=== PATIENT | female | born 1960 | race African-American/Black ===

== ENCOUNTER 2017-12-24 08:53 | Inpatient (IN) | payer OTHER ==
[~2017-12-24] VITALS: Ht 175.3 cm; Wt 92.2 kg
[2017-12-24] VITALS (15 sets, daily range): BP systolic 68–143; BP diastolic 44–85
--- NOTE | ~2017-12-24 | HC ---
[facility] [place] [address] CONSULTATION Name: BRIGETET RIVAS Room #: 247-P ADM IN M.R.#: [id number] Admission: 12/24/17 Attend Phys: Marv Sheridan MD Discharge: Date of : 56 Report #: [id number] THIS REPORT FOR: //name// CC: Servando Sheridan Nursery Supervisor DATE OF SERVICE: 12/24/2017 TYPE OF REPORT: Infectious diseases consultation. REASON FOR CONSULTATION: I was asked to evaluate the patient concerning pneumonia in the setting of respiratory failure. HISTORY OF PRESENT ILLNESS: The patient was a 57-year old who transfers from [facility] where she is on a chronic ventilator. She is quadriplegic over the last year. Treated initially at [facility] followed by [facility]. Although ALS was suspected and definitive diagnosis was not established. Later presented to [facility] in June with respiratory failure. Because of failure to wean from the ventilator, she was ultimately transferred to [facility]. There she was alert and cooperative. She was able to eat orally. She also had PEG tube feedings at night. Was responsive. She has been on prednisone. On 12/22/2017, laboratory studies showed hemoglobin 8; WBC 8.2 and platelet count 398,000. Differential was unremarkable. Chest x-ray had shown bilateral lower lobe infiltrates, which were new from 2 weeks prior. There was a small left pleural effusion. She had been previously treated with cefepime for pneumonia, developed C. difficile colitis and was on enteral vancomycin. Also, on prednisone taper, now at 2.5 mg every 48 hours. She presented through the Emergency Room with increased swelling of the tongue and unresponsiveness. Question whether she had a seizure. She has been started on Augmentin yesterday for pneumonia that was diagnosed on the . In the Emergency Room, she was unresponsive. EEG was nondiagnostic for seizure. MRI scan was performed, which showed no acute changes. Hemodynamically, she has been stable and has been on FiO2 of 45%. She does now arouse but unable to follow commands. She has quadriplegia. ALLERGIES: CONTRAST DYE. MEDICATIONS: As noted on her JAN, now on vancomycin and Zosyn. REVIEW OF SYSTEMS: She has had liquid stool. Minimal tracheal secretions. No gross aspiration was identified. She is receiving tube feeds through her PEG tube. She has indwelling Funez catheter with adequate urine output. No skin rashes or decubiti. [facility] [address] [place] [address] CONSULTATION Name: BRIGETTE RIVAS Room #: 247-P [facility] IN .R.#: [id number] Admission: 12/24/17 Attend Phys: Marv Sheridan MD Discharge: Date of : 56 Report #: [id number] FAMILY HISTORY: Noncontributory. SOCIAL HISTORY: Nonsmoker. No significant alcohol intake. REVIEW OF SYSTEMS: As noted above. PHYSICAL EXAMINATION: VITAL SIGNS: Afebrile and hemodynamically stable. She was awake but not following commands. HEENT: Eyes were unremarkable. Mouth unremarkable with a fair amount of saliva. Did not appear that her tongue was significantly swollen or mucosal lesions. NECK: Supple. LUNGS: Clear. HEART: Regular, without murmur. ABDOMEN: Obese, soft and nontender. The patient was cushingoid. PEG site was unremarkable. GENITOURINARY: Indwelling Funez catheter unremarkable. EXTREMITIES: Unremarkable. She had a peripheral IV in place. LABORATORY STUDIES: Echocardiogram showed sinus tachycardia with multiple PVCs. EEG, low voltage and no seizure activity. Hemoglobin 8.4; WBC 12.9 and platelet count was 452,000. Differential unremarkable. Chest x-ray, perihilar infiltrate extending into the left lower lobe, mild vascular congestion. Influenza antigen negative. Lactate 0.9. Sodium 135, potassium 3.3, bicarbonate 28 and creatinine 0.2. Urinalysis unremarkable. IMPRESSION: A 57-year old with quadriplegia, respiratory failure, now with change in mental status, possible seizure, left lower lobe pneumonia with leukocytosis, history of Clostridium difficile colitis and on steroid taper for possibility of amyotrophic lateral sclerosis. RECOMMENDATIONS: Cultures of blood, urine and sputum obtained. Sent off viral respiratory panel. Broad antibiotic coverage, pending further studies. Steroid Boost for stress. Add vancomycin due to recent C. diff. <ELECTRONICALLY SIGNED> By: Martin Duncan MD 12/25/17 1741 1830 2106 Martin Duncan MD /nt
--- NOTE | ~2017-12-24 | EKG ---
[address] [place] [address] ELECTROCARDIOGRAM REPORT Name: BRIGETTE RIVAS Room #: 247-P ADM IN M.R.#: [id number] Admission: 12/24/17 Attend Phys: Marv Sheridan MD Discharge: Date of : 56 Report #: [id number] THIS REPORT FOR: //name// [facility] ED Test Date: 2017-12-24 Test Time: 10:46:12 Pat Name: BRIGETTE RIVAS Department: Room: [facility] Gender: F Sewer Pipe Layer: jason : 1960 Requested By: Sachin Rios Order Number: [id number] MD: Everton Lal Measurements Intervals [place] Rate: 100 P: 57 WA: 172 QRS: 12 QRSD: 88 T: 6 QT: 332 QTc: 429 Interpretive Statements Sinus tachycardia Multiple ventricular premature complexes Borderline T wave abnormalities No previous ECG available for comparison Electronically Signed On 12-24-2017 17:17:16 [employer] by Everton Lal [email or web address] <ELECTRONICALLY SIGNED> By: Everton Lal MD, [facility] 12/24/17 1717 1046 1046 Everton Lal MD, FACC /EPI
--- NOTE | ~2017-12-24 | EEG ---
[facility] [address] ELECTROENCEPHALOGRAM Name: BRIGETTE RIVAS Room #: 351-P [facility] IN M.R.#: [id number] Admission: 12/24/17 Attend Phys: Marv Sheridan MD Discharge: 12/31/17 Date of : 56 Report #: [id number] THIS REPORT FOR: //name// CC: Servando Sheridan Director Of Supply Chain DATE OF SERVICE: 12/24/2017 This patient is being evaluated for altered mental status. EEG is being done to evaluate the patient for any seizure activity. EEG is masked by a lot of artifact. Background activity appeared to be about 5-6 Hz, but less than 10 microvolts that makes it very difficult to tell how much background activity is. Photic stimulation is unremarkable. IMPRESSION: This is an abnormal electroencephalogram because it is very low voltage. That is a nonspecific abnormality, which can occur with dementia, encephalopathy, effect of psychotropic medication, etc. Clinical correlation is recommended. No active seizure activity was noted. Thank you very much for this referral. <ELECTRONICALLY SIGNED> By: Ej Cornelius MD 01/02/182010 1551 1708 Ej Cornelius MD /nt
--- NOTE | ~2017-12-24 | H ---
[facility] [place] [address] HISTORY AND PHYSICAL Name: BRIGETTE RIVAS Room #: 247-P ADM IN M.R.#: [id number] Admission: 12/24/17 Attend Phys: Marv Sheridan MD Discharge: Date of : 56 Report #: [id number] THIS REPORT FOR: //name// CC: Servando Sheridan Bee Robber DATE OF SERVICE: 12/24/2017 CHIEF COMPLAINT: Altered mental status. HISTORY OF PRESENT ILLNESS: The patient is a 57-year-old female, transferred from [facility] for evaluation of altered mental status. She has a complicated neurologic history where approximately a year ago developed a progressive neurologic condition where she has become gradually weak, which progressed to the point of quadriplegia. This resulted in respiratory failure and subsequently requiring mechanical ventilation and the placement of a trach tube and PEG tube. She has been seen at multiple hospitals including at without a definitive diagnosis. She has been nonweanable from the [facility] and then transferred to [facility] in October. According to reports from family, she normally is alert and can interact with her family that she does eat by mouth with assistance and was in her usual state of condition last night. This morning, however, she is not responsive to usual stimuli. She has lateralizing gaze with tongue protrusion and biting and is not as responsive or alert as normal. There was a recent x-ray taken from the facility, which showed a basilar infiltrate, and Augmentin was started. She had completed a course of Levaquin earlier in the month. PAST MEDICAL HISTORY: Insulin resistance, likely related to prednisone use. She is requiring insulin. Chronic respiratory failure, ventilator dependent. Hypertension, progressive neurologic condition leading to quadriparesis or quadriplegia. PAST SURGICAL HISTORY: Other than trach and PEG is unknown. FAMILY HISTORY: Unknown. SOCIAL HISTORY: Unknown. ALLERGIES: CONTRAST DYE. MEDICATIONS: Ativan, melatonin, Pepcid, calcium, Seroquel, Lopressor, Zoloft, BuSpar, Lovenox, Humalog. REVIEW OF SYSTEMS: She is unable to give review. [facility] [address] [place] [address] HISTORY AND PHYSICAL Name: BRIGETTE RIVAS Room #: 247-P [facility] IN .R.#: [id number] Admission: 12/24/17 Attend Phys: Marv Sheridan MD Discharge: Date of : 56 Report #: [id number] PHYSICAL EXAMINATION: VITAL SIGNS: Temperature 37, pulse 104, respirations 20, blood pressure 126/73, O2 sat 100% on the ventilator. GENERAL: She is not responsive to verbal or physical stimuli. HEENT: Her eyes are open, seems to have a lateralizing gaze to the right. She has tongue protrusion. NECK: Trach in place. HEART: Regular. LUNGS: Clear anteriorly. ABDOMEN: Soft, normoactive bowel sounds. EXTREMITIES: 1+ nonpitting edema throughout. NEUROLOGIC: She does not move spontaneously or with verbal stimuli. LABORATORY AND IMAGING DATA: Reviewed. I spoke to the ER physician about her case. ASSESSMENT: 1. Altered mental status. 2. Possible seizures. 3. Chronic respiratory failure. 4. Chronic ventilator dependence. 5. 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 6. Diabetes type 2, prednisone induced. 7. Microcytic anemia. PLAN: Should be admitted to ICU. Neurology Service has been consulted, and an EEG has just been completed. There are plans for MRI of the brain. I will ask the Pulmonary Service to follow her and Infectious Disease. Out focus at this point will be trying to pinpoint any cause of this change in mental status from yesterday, which seems to be an acute process. Her underlying neurologic condition remains undiagnosed and that she has had extensive workup elsewhere. It is likely that we will not be able to produce a diagnosis that could be reversible. Therefore, our focus will center on any acute issues transpiring in the last 24 hours. <ELECTRONICALLY SIGNED> By: Marv Sheridan MD 12/25/17 0902 1246 1445 Marv Sheridan MD /nt
--- NOTE | ~2017-12-24 | HC ---
[facility] [place] [address] CONSULTATION Name: BRIGETTE RIVAS Room #: 351-P [facility] IN M.R.#: [id number] Admission: 12/24/17 Attend Phys: Marv Sheridan MD Discharge: 12/31/17 Date of : 56 Report #: [id number] THIS REPORT FOR: //name// CC: Servando Sheridan Farm Supervisor DATE OF SERVICE: 12/24/2017 HISTORY OF PRESENT ILLNESS: This is a 57-year-old female patient who is unable to provide any history at all. I talked to the nurses looking after this patient and I talked to the Emergency Room physician who admitted this patient. I have called the patient's daughter's number twice and the patient's x 1 and I am not able to reach any one of them. We will try again tomorrow. The history I get in this patient is that this patient has a rapidly progressive neurological disease, which has made her quadriplegic. She has been worked up at [facility], [facility] and looks like at [facility]. They considered multiple diagnoses including ALS, MS and Guillain-Drums syndrome, but does not look like they established any diagnosis in this patient the best I can tell. I do not have any records and I have asked for her records from [facility], but I have not gotten those records. She was admitted with altered mental status. It is not clear what her baseline is. She is quadriplegic, but is more functional than she is now. Presently, when I saw her, she does not do anything. She looks towards left side, but does not follow any commands and basically does not do anything on my examination. REVIEW OF SYSTEMS: Looks like it is positive for pneumonia and some very aggressive neurological disease, which has made her quadriplegic. Rest of the history is not available. I do not think anybody has witnessed any seizure. She is ventilator dependent in her baseline. She has been on prednisone. That is all the 14-point review of system I can get in this patient. PAST MEDICAL HISTORY: Positive for neurological disease which is severe. FAMILY HISTORY: Unavailable. SOCIAL HISTORY: [place] PHYSICAL EXAMINATION: Limited. She is in fact not much responsive. She opens her eyes. She looks towards her left, but does not follow any commands. She is quadriplegic in her baseline. I cannot tell about the sensory examination and I have not been able to reach the family. LABORATORY DATA: As mentioned above, nobody has noticed a seizure activity in this patient. [address] [address] CONSULTATION Name: BRIGETTE RIVAS Room #: 351-[facility] IN M.R.#: [id number] Admission: 12/24/17 Attend Phys: Marv Sheridan MD Discharge: 12/31/17 Date of : 56 Report #: [id number] IMPRESSION: Very difficult to form. I do not know what her underlying condition is. I suspect the most common will be amyotrophic lateral sclerosis, although the course is pretty rapid. I assume they have excluded treatable etiologies like Guillain-Drums and polymyositis where she was admitted before. Her present symptomatology is probably because of encephalopathy caused by infection because her EEG does not show any seizure activity. An MRI appear unremarkable. Question is whether to proceed with spinal tap or not and that is what I would like to discuss with the family if I can reach them. RECOMMENDATIONS: 1. We will hold Lovenox tonight. 2. When I can reach the family, I will discuss with them about the spinal tap. 3. If she starts having any clinical seizures, then we will treat her, but presently there is no evidence for seizures and we will basically watch her at the moment. I will continue to try to reach the family and discuss with them further when I am able to reach them. <ELECTRONICALLY SIGNED> By: Ej Cornelius MD 01/02/182008 27 0135 Ej Cornelius MD /nt
--- NOTE | ~2017-12-24 | EEG ---
[facility] [place] [address] ELECTROENCEPHALOGRAM Name: BRIGETTE RIVAS Room #: 351-P [facility] IN M.R.#: [id number] Admission: 12/24/17 Attend Phys: Marv Sheridan MD Discharge: 12/31/17 Date of : 56 Report #: [id number] THIS REPORT FOR: //name// CC: Servando Sheridan Slasher Tender Helper DATE OF SERVICE: 12/26/2017 This patient is being evaluated for altered mental status. EEG was done by placing the electrodes by standard 10-20 system of electrode placement. Both referential and sequential montages were used for recording. Background activity in this patient's EEG is up to about 9 Hz and 30 microvolts. Still a lot of artifact is present, but EEG is better than before. Photic stimulation is unremarkable. The patient appeared to be drowsy during part of this EEG and that is associated with bilateral slowing. Throughout the record, no active epileptiform activity was noticed. IMPRESSION: This patient's electroencephalogram is intermixed with some theta range slowing on both sides, but otherwise appears unremarkable. Thank you very much for this referral. <ELECTRONICALLY SIGNED> By: Ej Cornelius MD 01/02/182010 1600 1646 Ej Cornelius MD /nt
--- NOTE | ~2017-12-24 | HC ---
[facility] [place] [address] CONSULTATION Name: BRIGETTE RIVAS Room #: 247-P ADM IN M.R.#: [id number] Admission: 12/24/17 Attend Phys: Marv Sheridan MD Discharge: Date of : 56 Report #: [id number] THIS REPORT FOR: //name// CC: Servando Sheridan In Classroom Tutor DATE OF SERVICE: 12/24/2017 REFERRAL PHYSICIAN: Dr. Marv Sheridan. REASON FOR REFERRAL: Ventilator management. HISTORY OF PRESENT ILLNESS: The patient is a 57-year-old female who was brought to the Emergency Room with altered mental status. She is quadriplegic and vent dependent. A pulmonary consultation was requested. History is primarily obtained from the medical records. Family members are not available at this time. According to the Emergency Room note, the family had given the history that the patient was well until about a year ago. About a year ago she started to develop weakness. She was hospitalized in [facility] around that time. According to family, the patient underwent surgery in 05/2017 for an apparent pinched nerve. We do not have the records from [facility] for review. According to the family, the patient's condition did not change from the procedure. Initially, pinched nerve was felt to be the cause for the patient's weakness at the time. She was then taken to [facility]. She was evaluated and was felt to have a neurodegenerative disorder; however, workup did rule out ALS and multiple sclerosis. With negative workup the patient was subsequently dismissed to home. With worsening weakness, she was then hospitalized at [facility] ICU. She was there about a month. She was intubated. She eventually had a tracheostomy placed and was then transferred to a long-term care facility at [facility]. At the long-term care facility the patient was felt to be unweanable from the mechanical ventilation. She was eventually transferred to [facility] facility. According to the family, she is normally awake. She does converse with the family. She was in her usual state of health until a few days ago when she was treated for pneumonia. Augmentin was started. Yesterday, the patient was found to have swollen tongue along with altered mental status. She was sent to the Emergency Room for further evaluation. Augmentin was antibiotic started yesterday. [address] [address] CONSULTATION Name: BRIGETTE RIVAS Room #: 247-P [facility] IN M.R.#: [id number] Admission: 12/24/17 Attend Phys: Marv Sheridan MD Discharge: Date of : 56 Report #: [id number] PAST MEDICAL HISTORY: As mentioned above, diabetes mellitus type 2 due to corticosteroids. ALLERGIES: CONTRAST DYE, REACTIONS UNSPECIFIED. MEDICATIONS ON TRANSFER: Include insulin, Lovenox, buspirone, Zoloft, Lopressor, Seroquel, Pepcid, melatonin, lorazepam. FAMILY HISTORY: Noncontributory. SOCIAL HISTORY: No tobacco or alcohol use. REVIEW OF SYSTEMS: Deferred as the patient is not able to provide answers. PHYSICAL EXAMINATION: GENERAL: She is semi-somnolent, arouses to deep sternal rub. VITAL SIGNS: Temperature is 98.6 degrees Fahrenheit, pulse is 104, respiratory rate is 20, blood pressure is 126/73 mmHg, saturation is 100%. HEENT: Normocephalic, atraumatic. NECK: Supple, without any lymphadenopathy or thyromegaly. Status post tracheostomy. CHEST: Breath sounds are fair. Few scattered crackles in both lung logan. No wheezes. CARDIOVASCULAR: Normal S1, S2. There are no murmurs or gallop. There is no JVD. There is no carotid bruit. Pulses are 2+/4+ bilaterally. ABDOMEN: Soft, nontender, no organomegaly or masses felt. GENITOURINARY: Deferred. RECTAL: Deferred. EXTREMITIES: There is no edema, cyanosis or clubbing. NEUROLOGIC: She is semi-somnolent, quadriplegic. LABORATORY DATA: Portable chest x-ray shows cardiomegaly, patchy bilateral interstitial infiltrates, tracheostomy in the midline. No consolidation noted. CT head was unremarkable for any acute ischemic changes. UA was unremarkable. Lactic acid is normal. Negative for influenza A and B. Sodium 135, potassium 3.3, chloride 99, CO2 is 28, BUN is 13, creatinine 0.2, glucose 364. WBC 12,900, hemoglobin 8.4, platelets are mildly elevated. No differential performed. Arterial blood gas revealed pH 7.44, pCO2 of 39, pO2 of 313 on FiO2 (?) 45% (?) IMPRESSION: 1. Altered mental status in this 57-year-old female with 1-year history of progressive weakness of undetermined origin. Etiology is unclear, but may be related to a possible infectious process. Her tongue edema suggests possible allergic reaction. There is a questionable pneumonia with [facility] [address] [place] [address] CONSULTATION Name: BRIGETTE RIVAS Room #: 247-P ADM IN M.R.#: [id number] Admission: 12/24/17 Attend Phys: Marv Sheridan MD Discharge: Date of : 56 Report #: [id number] infiltrates by chest x-ray. Unclear whether these infiltrate are new or old. 2. Tongue edema. Quite suspicious for allergic reaction. The patient may be allergic to PENICILLIN(?) 3. Bilateral patchy infiltrates. Unclear if some of the infiltrates are new or old. Review of old x-rays will be helpful. Agree with broad-spectrum antibiotics to cover possible nosocomial infections. 4. Acute on chronic hypoxic respiratory failure. Note that pO2 is 300 on FiO2 presumed "45%," this may be an error. The patient is likely on FiO2 of 100%. We will clarify. 5. Progressive weakness resulting in quadriplegia of undetermined origin. Workup at was felt to have ruled out amyotrophic lateral sclerosis and multiple sclerosis. Etiology remains unclear. Review of records from will be helpful. Neurology has been consulted. 6. Leukocytosis, differential will be helpful given presentation. Would also recommend eosinophil count. 7. Anemia, hyperchromic, probably related to chronic illness. 8. Altered mental status, likely related to possible allergic reaction, but has progression of underlying neurologic disorder, cerebrovascular accident, etc. Again, Neurology has been consulted. 9. Steroid induced diabetes mellitus type 2, glucose is around 300. 10. Electrolyte abnormalities including hyponatremia, hypokalemia. 11. Status post tracheostomy and PEG tube placement. The patient was felt to be unweanable while at [facility] facility. This will be consistent with history of progressive weakness resulting in quadriplegia. RECOMMENDATION: Agree with broad spectrum antibiotics to cover nosocomial infections. DVT and GI prophylaxis is recommended. In regards to the tongue edema, I would suggest investigating where the patient may had an allergic reaction including possible drug allergy. We will consider Benadryl and/or corticosteroid. Would also recommend checking an IgE level, eosinophil count. Altered mental status along with progressive weakness, Neurology has been consulted. Would recommend reviewing records from [facility] and for review regarding a neurologic disorder. Thank you for this consultation. <ELECTRONICALLY SIGNED> By: Abdon Crowley MD 12/26/17 1516 1259 2035 Abdon Crowley MD /nt
--- NOTE | ~2017-12-24 | D ---
[facility] [place] [address] DISCHARGE SUMMARY Name: BRIGETTE RIVAS Room #: 351-P [facility] IN M.R.#: [id number] Admission: 12/24/17 Attend Phys: Marv Sheridan MD Discharge: 12/31/17 Date of : 56 Report #: [id number] THIS REPORT FOR: //name// CC: Servando Sheridan Marketing Systems Analyst DATE OF SERVICE: 12/31/2017 FINAL DIAGNOSES: 1. Healthcare-associated pneumonia. 2. Chronic respiratory failure. 3. Altered mental status due to the above. 4. Ventilator dependence. HOSPITAL COURSE: The patient was admitted with altered mental status. Ultimately, the diagnosis was pneumonia in the left base for which she was treated with antibiotics. Overnight, her mental status returned to baseline. She was seen by the Neurology Service, but no new plans for workup or definitive diagnosis for her neurologic condition that has been worked up at several other facilities [facility]. She remained on full ventilator care. Video swallow was obtained, which she passed and regular diet was reordered. She had no other interval complication. DISPOSITION: She is transferring back to [facility] facility. She will continue course of IV antibiotics, all other medications will continue. She will follow up with Dr. Duncan as directed. Full ventilator care to remain in place. <ELECTRONICALLY SIGNED> By: Marv Sheridan MD 01/02/18 1042 1222 1236 Marv Sheridan MD /morena
[2017-12-24] MEDS ORDERED: LANTUS SUBQ (09:35)
[2017-12-24] MEDS ORDERED: HUMALOG100 UNIT/2 SUBQ (09:35)
[2017-12-24] MEDS ORDERED: ENOXAPARIN40 MG/0.1 SUBQ (09:35)
[2017-12-24] MEDS ORDERED: BUSPIRONE HCL10 MG PER TUBE (09:36)
[2017-12-24] MEDS ORDERED: ZOLOFT50 MG PER TUBE (09:37)
[2017-12-24] MEDS ORDERED: LOPRESSOR50 PER TUBE (09:37)
[2017-12-24] MEDS ORDERED: SEROQUEL 25 MG25 M1 PER TUBE (09:38)
[2017-12-24] MEDS ORDERED: TUMS PER TUBE (09:38)
[2017-12-24] MEDS ORDERED: PEPCID20 MG PER TUBE (09:38)
[2017-12-24] MEDS ORDERED: MELATONIN3 MG PER TUBE (09:39)
[2017-12-24] MEDS ORDERED: ATIVAN1 MG PO (09:40)
[2017-12-24 09:42] LABS: HEMATOCRIT 25.2 % (37.0-47.0); HEMOGLOBIN 8.4 gm/dL (12.0-15.0); MCHC 33.6 g/dL (28.0-37.0); MCV 77.4 fL (80.0-100.0); PLATELET COUNT 452 thou/uL (150-400); RBC 3.25 mil/uL (4.20-5.00); RDW 20.1 % (10.5-14.5); WBC 12.9 thou/uL (4.0-11.0)
[2017-12-24 09:44] LABS: URINE BILIRUBIN NEGATIVE (Negative); URINE BLOOD NEGATIVE (Negative); URINE CLARITY CLEAR; URINE COLOR YELLOW; URINE GLUCOSE-RANDOM* NEGATIVE (Negative); URINE KETONES NEGATIVE (Negative); URINE NITRITE-REFLEX NEGATIVE (Negative); URINE PROTEIN (DIPSTICK) NEGATIVE (Negative); URINE UROBILINOGEN 0.2 E.U./dl (0.2-1.0)
[2017-12-24 09:45] LABS: URINE LEUKOCYTES-REFLEX TRACE (Negative)
[2017-12-24 09:47] LABS: ANION GAP 8 mmol/L (7-16); BUN 13 mg/dL (7-18); CALCIUM 9.8 mg/dL (8.5-10.1); CHLORIDE 99 mmol/L (98-107); CO2 28 mmol/L (21-32); CREATININE 0.2 mg/dL (0.6-1.0); GLUCOSE 172 mg/dL (74-106); POTASSIUM 3.3 mmol/L (3.5-5.1); SODIUM 135 mmol/L (136-145)
[2017-12-24 09:56] LABS: TROPONIN-I < 0.04 ng/mL (<0.06)
[2017-12-24 11:40] LABS: BE(vivo) 2.6 mmol/L (-2 to +3); HCO3 26.8 mmol/L (22.0-26.0); PCO2 39.8 mmHg (35.0-45.0); PO2 313.3 mmHg (80.0-100.0); pH 7.446 (7.360-7.450); sO2 99.7 % (92.0-98.0)
[2017-12-24 15:28] LABS: ABSOLUTE NEUTROPHILS 10.3 thou/uL (1.4-8.2); BASOPHILS 0.6 % (0.0-2.0); EOSINOPHILS 0.7 % (0.0-3.0); LYMPHOCYTES 9.3 % (24.0-44.0); MONOCYTES 8.5 % (1.0-8.0); POLYS 80.9 % (36.0-66.0)
[2017-12-25] VITALS (24 sets, daily range): BP systolic 91–161; BP diastolic 48–88
[2017-12-25 01:44] LABS: HEMATOCRIT 24.5 % (37.0-47.0); MCH 25.4 pg (26.0-34.0); MCHC 32.6 g/dL (28.0-37.0); MCV 77.8 fL (80.0-100.0); RBC 3.15 mil/uL (4.20-5.00); RDW 19.7 % (10.5-14.5); WBC 12.7 thou/uL (4.0-11.0)
[2017-12-25 01:51] LABS: CALCIUM 8.8 mg/dL (8.5-10.1); CREATININE 0.2 mg/dL (0.6-1.0); POTASSIUM 3.6 mmol/L (3.5-5.1)
[2017-12-25 05:05] LABS: BE(vivo) 0.4 mmol/L (-2 to +3); HCO3 24.9 mmol/L (22.0-26.0); PCO2 39.3 mmHg (35.0-45.0); PO2 99.6 mmHg (80.0-100.0); pH 7.419 (7.360-7.450); sO2 97.6 % (92.0-98.0)
[2017-12-26] VITALS (15 sets, daily range): BP systolic 109–150; BP diastolic 68–95
[2017-12-26 01:19] LABS: HEMATOCRIT 25.8 % (37.0-47.0); HEMOGLOBIN 8.5 gm/dL (12.0-15.0); MCH 25.9 pg (26.0-34.0); MCV 78.5 fL (80.0-100.0); RBC 3.29 mil/uL (4.20-5.00); RDW 19.9 % (10.5-14.5); WBC 20.1 thou/uL (4.0-11.0)
[2017-12-26 01:20] LABS: BE(vivo) 4.1 mmol/L (-2 to +3); HCO3 28.7 mmol/L (22.0-26.0); PCO2 43.5 mmHg (35.0-45.0); PO2 131.1 mmHg (80.0-100.0); pH 7.438 (7.360-7.450); sO2 98.7 % (92.0-98.0)
[2017-12-26 01:31] LABS: CALCIUM 9.7 mg/dL (8.5-10.1); CREATININE 0.2 mg/dL (0.6-1.0); POTASSIUM 3.1 mmol/L (3.5-5.1)
[2017-12-27] VITALS (9 sets, daily range): BP systolic 103–125; BP diastolic 65–79
[2017-12-27 04:54] LABS: HEMATOCRIT 28.2 % (37.0-47.0); HEMOGLOBIN 9.2 gm/dL (12.0-15.0); MCH 25.8 pg (26.0-34.0); MCHC 32.5 g/dL (28.0-37.0); MCV 79.4 fL (80.0-100.0); RBC 3.55 mil/uL (4.20-5.00); RDW 20.6 % (10.5-14.5); WBC 20.7 thou/uL (4.0-11.0)
[2017-12-27 05:01] LABS: CALCIUM 9.9 mg/dL (8.5-10.1); CREATININE 0.2 mg/dL (0.6-1.0); POTASSIUM 4.3 mmol/L (3.5-5.1)
[2017-12-27 05:12] LABS: ADENOVIRUS Negative (Negative); INFLUENZA A Negative (Negative); INFLUENZA B Negative (Negative); METAPNEUMOVIRUS Negative (Negative); PARAINFLUENZA 1 Negative (Negative); PARAINFLUENZA 2 Negative (Negative); PARAINFLUENZA 3 Negative (Negative); RHINOVIRUS Negative (Negative); RSV A Negative (Negative); RSV B Negative (Negative)
[2017-12-28 06:27] VITALS: BP 91/57
[2017-12-28 07:49] VITALS: BP 119/68
[2017-12-28 08:38] LABS: CALCIUM 9.5 mg/dL (8.5-10.1); CREATININE 0.2 mg/dL (0.6-1.0); POTASSIUM 3.8 mmol/L (3.5-5.1)
[2017-12-28 11:40] LABS: HEMATOCRIT 30.1 % (37.0-47.0); HEMOGLOBIN 9.7 gm/dL (12.0-15.0); MCH 25.4 pg (26.0-34.0); MCHC 32.3 g/dL (28.0-37.0); MCV 78.6 fL (80.0-100.0); RBC 3.83 mil/uL (4.20-5.00); WBC 20.9 thou/uL (4.0-11.0)
[2017-12-28 11:54] LABS: APTT 27.6 Seconds (24.5-32.8); INR 1.1; PROTIME 11.3 Seconds (9.3-11.4)
[2017-12-28 12:30] VITALS: BP 151/91
[2017-12-28 16:11] VITALS: BP 125/77
[2017-12-28 19:10] VITALS: BP 125/78
[2017-12-29 03:35] VITALS: BP 135/80
[2017-12-29 05:16] LABS: HEMATOCRIT 29.9 % (37.0-47.0); HEMOGLOBIN 9.7 gm/dL (12.0-15.0); MCH 25.1 pg (26.0-34.0); MCHC 32.3 g/dL (28.0-37.0); MCV 77.8 fL (80.0-100.0); RBC 3.84 mil/uL (4.20-5.00); RDW 20.4 % (10.5-14.5)
[2017-12-29 05:26] LABS: CALCIUM 9.6 mg/dL (8.5-10.1); CREATININE 0.2 mg/dL (0.6-1.0); POTASSIUM 3.5 mmol/L (3.5-5.1)
[2017-12-29 08:24] VITALS: BP 127/62
[2017-12-29 11:16] VITALS: BP 83/47
[2017-12-29 15:47] VITALS: BP 112/72
[2017-12-29 19:30] VITALS: BP 106/56
[2017-12-30 04:00] VITALS: BP 89/45
[2017-12-30 07:28] VITALS: BP 95/39
[2017-12-30 11:12] VITALS: BP 91/53
[2017-12-30 16:44] VITALS: BP 173/94
[2017-12-30 20:00] VITALS: BP 107/74
[2017-12-31 04:00] VITALS: BP 101/64
[2017-12-31 07:15] VITALS: BP 124/69
[2017-12-31 07:20] LABS: BE(vivo) 2.3 mmol/L (-2 to +3); HCO3 26.7 mmol/L (22.0-26.0); PCO2 40.8 mmHg (35.0-45.0); PO2 108.6 mmHg (80.0-100.0); pH 7.434 (7.360-7.450); sO2 98.1 % (92.0-98.0)
[2017-12-31 10:36] LABS: HEMATOCRIT 28.8 % (37.0-47.0); HEMOGLOBIN 9.3 gm/dL (12.0-15.0); MCH 25.6 pg (26.0-34.0); MCHC 32.4 g/dL (28.0-37.0); MCV 79.1 fL (80.0-100.0); RBC 3.64 mil/uL (4.20-5.00); RDW 20.1 % (10.5-14.5); WBC 17.7 thou/uL (4.0-11.0)
[2017-12-31 10:48] LABS: CALCIUM 9.8 mg/dL (8.5-10.1); CREATININE 0.2 mg/dL (0.6-1.0); POTASSIUM 3.5 mmol/L (3.5-5.1)
[2017-12-31 11:43] VITALS: BP 130/69
[2017-12-31] MEDS ORDERED: CIPRO250 M1 PO (12:09)
[2017-12-31] MEDS ORDERED: FERREX 150 PLU1 EAC1 PO (12:10)
[2017-12-31] MEDS ORDERED: DUONEB 2.5-0.5 M3 ML INH (12:10)
[2017-12-31] MEDS ORDERED: PREVALITE PACKET4 GM PO (12:10)
[2017-12-31] MEDS ORDERED: LOPRESSOR25 PER TUBE (12:10)
[2017-12-31] MEDS ORDERED: ALPRAZOLAM 0.50.5 M1 PER TUBE (12:11)
[2017-12-31] MEDS ORDERED: ACETAMINOPHEN325 M1 PO (12:11)
[2017-12-31 15:15] VITALS: BP 106/64
[2017-12-31 15:40] VITALS: BP 110/78
[2018-03-18] MEDS ORDERED: XANAX 0.5 MG0.5 MG PO (23:08)
[2018-03-18] MEDS ORDERED: HYDROCODON-ACE1 EAC7 PO (23:09)
[2018-03-18] MEDS ORDERED: ANTACID PLUS A355 M1 PER TUBE (23:09)
[2018-03-18] MEDS ORDERED: POTASSIUM20 PO (23:11)
[2018-03-18] MEDS ORDERED: FERREX 150150 MG PER TUBE (23:13)
[2018-03-22] MEDS ORDERED: MERREM1 GM IV (10:15)
[2018-03-22] MEDS ORDERED: ALPRAZOLAM 0.0.25 M1 PER TUBE (10:15)
[2018-03-22] MEDS ORDERED: ENOXAPARIN40 MG/0.1 SUBQ (10:15)
[2018-03-22] MEDS ORDERED: NOVOLOG100 UNIT/1 SUBQ (10:16)
== END 2017-12-31 19:14 | DRG 870 ==
LOC: ER 08:53 → EROBS 11:27 → ICU 11:27 → EROBS 13:16 → ICU 13:16 → 3W 12-27 16:58
PROVIDERS: Emergency Medicine; Internal Medicine Geriatric Medicine; Internal Medicine Pulmonary Disease; Specialist
PROC: 5A1955Z Respiratory Ventilation, Greater than 96 Consecutive Hours (ICD-10-PCS; principal; 2017-12-24)
DX: A41.9 Sepsis, unspecified organism (principal); G82.50 Quadriplegia, unspecified; J18.1 Lobar pneumonia, unspecified organism; J96.21 Acute and chronic respiratory failure with hypoxia; G93.40 Encephalopathy, unspecified; R65.20 Severe sepsis without septic shock; E11.9 Type 2 diabetes mellitus without complications; T38.0X5A Adverse effect of glucocorticoids and synthetic analogues, initial encounter; I10 Essential (primary) hypertension; D50.9 Iron deficiency anemia, unspecified; Z93.0 Tracheostomy status; Y92.89 Other specified places as the place of occurrence of the external cause; Z91.041 Radiographic dye allergy status; Z93.1 Gastrostomy status
CPT/HCPCS: 10078; 10779

== ENCOUNTER 2018-09-06 07:36 | Inpatient (IN) | payer OTHER ==
[~2018-09-06] VITALS: Ht 167.6 cm; Wt 85.1 kg
[2018-09-06] VITALS (35 sets, daily range): BP systolic 80–203; BP diastolic 43–108
--- NOTE | ~2018-09-06 | H ---
[facility] [place] [address] HISTORY AND PHYSICAL Name: BRIGETTE RIVAS Room #: 241-P ADM IN M.R.#: [id number] Admission: 09/06/18 Attend Phys: Marv Sheridan MD Discharge: Date of : 56 Report #: [id number] THIS REPORT FOR: //name// CC: Servando Sheridan DATE OF SERVICE: 09/06/2018 CHIEF COMPLAINT: Low blood pressure. 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 There was report there were systolic blood pressure dropping into the 70s. The staff reported that she is nonverbal, but normally responds by eye contact and today there was little to no interaction. Blood pressure was 130s en route, but in ER during the course of workup, she became hypotensive as well. She is unable to give any details of her history. All the information was obtained by speaking with the ER physician and reviewing the records. She is admitted to ICU with sepsis, likely related from healthcare-associated pneumonia and possible urinary infection. 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 She has failed multiple attempts at ventilator weaning and is now chronically ventilated. She has a chronic feeding tube. She is total care and has progressed to quadriplegia, diabetes type 2, related to steroid use, hypertension, history of C. diff in 2017. Several months ago, she had an admission at [facility] for neurologic evaluation and they diagnosed her with ALS per review of [facility] records and discussing with Dr. Duncan. PAST SURGICAL HISTORY: Trach and PEG. FAMILY HISTORY: Noncontributory. SOCIAL HISTORY: She is . No known chronic alcohol or tobacco use. ALLERGIES: CONTRAST DYE. MEDICATIONS: DuoNeb, Tylenol, Xanax, Merrem, sertraline, metoprolol, melatonin, scopolamine patch. REVIEW OF SYSTEMS: She is unable to give review. OBJECTIVE: VITAL SIGNS: Temperature 37.4, pulse 102, respirations 16, blood pressure 125/75, O2 sat 94% on 40% ventilator. [facility] [address] [place] [address] HISTORY AND PHYSICAL Name: BRIGETTE RIVAS Room #: [facility] ADM IN M.R.#: [id number] Admission: 09/06/18 Attend Phys: Marv Sheridan MD Discharge: Date of : 56 Report #: [id number] GENERAL: She is not alert. Eyes open. HEENT: Tongue protruding. No meaningful interaction. NECK: Tracheostomy in place with some yellow secretions. HEART: Slightly tachycardic, regular rhythm. ABDOMEN: Protuberant, soft, normoactive bowel sounds. PEG tube. EXTREMITIES: No cyanosis or clubbing. There is nonpitting edema throughout. NEUROLOGIC: No spontaneous movement and no interaction currently. Labs reviewed. Urinalysis and chest x-ray reviewed. ASSESSMENT: 1. Sepsis. 2. Healthcare-associated pneumonia. 3. Probable urinary tract infection. 4. Chronic ventilator dependence. 5. Chronic hypoxic hypercapnic respiratory failure. 6. ALS. PLAN: She is admitted to ICU with supportive cares and will have ID and Pulmonary service followed her. <ELECTRONICALLY SIGNED> By: Marv Sheridan MD 09/07/18 0754 1218 1245 Marv Sheridan MD /nt
--- NOTE | ~2018-09-06 | O ---
[facility] [place] [address] OPERATIVE REPORT Name: BRIGETTE RIVAS Room #: 241-P ADM IN M.R.#: [id number] Admission: 09/06/18 Attend Phys: Marv Sheridan MD Discharge: Date of : 56 Report #: [id number] THIS REPORT FOR: //name// CC: Servando Sheridan PROCEDURE: Diagnostic and therapeutic bronchoscopy. CLINICAL HISTORY: A 58-year-old -Spanish female with progressive neurodegenerative disorder. The patient is felt to have ALS. Recent CT chest and chest x-ray revealed extensive left-sided infiltrates with atelectasis. A diagnostic bronchoscopy was performed. POSTOPERATIVE DIAGNOSES: 1. Marked mucus secretions and mucus plugging involving the left main stem bronchus. 2. Bjcc-vb-vdsebeio mucosal edema bilaterally. DESCRIPTION OF PROCEDURE: Following obtained consent and risks and benefits being explained to the patient, which included infection, bleeding, pneumothorax, the procedure was performed in the ICU room. Thorough the previously placed tracheostomy tube, a flexible disposable bronchoscope was used. The distal trachea was unremarkable. Vaishnavi was unremarkable. Left main stem bronchus was notable for marked secretions, mucus plugging seen proximal to the bronchus. Following suctioning, the rest of the airways were examined. The left upper lobe and left lower lobe was grossly unremarkable other than moderate mucosal edema. Right mainstem bronchus, right upper lobe, right middle lobe and right lower lobe were grossly unremarkable other than mild mucosal edema. The bronchial wash will be sent for microbiologic studies. Vital signs and saturation throughout the study were within normal range. The patient tolerated the procedure well. By: 1642 1832 Abdon Crowley MD /nt
--- NOTE | ~2018-09-06 | HC ---
[facility] [place] [address] CONSULTATION Name: BRIGETTE RIVAS Room #: 241-P ADM IN M.R.#: [id number] Admission: 09/06/18 Attend Phys: Marv Sheridan MD Discharge: Date of : 56 Report #: [id number] THIS REPORT FOR: //name// CC: Servando Sheridan DATE OF SERVICE: 09/06/2018 REASON FOR CONSULTATION: Hypotension with suspected sepsis. HISTORY OF PRESENT ILLNESS: The patient is a 58-year-old with underlying ALS, advanced, who is ventilatory dependent. Presents from [facility] with hypotension and decreased mental status. The patient has deteriorated over the last several months, being able to communicate other than blinking her eyes. She has had right upper extremity PICC in place. She has had moderate amount of tracheal secretions. There have been no increased oxygen requirements. She has an indwelling Funez catheter. She has had no diarrhea. She has a PEG tube, which has been functional. Nursing notes no rashes or decubiti. Following presentation to the Emergency Room, she was being given IV fluids with improvement in her blood pressure. Transferred to the Intensive Care Unit for further monitoring. Remains on FiO2 of 35%. Blood and sputum cultures have been obtained. REVIEW OF SYSTEMS: The patient was unable to give any further details due to her advanced neurologic deterioration. PAST MEDICAL HISTORY: Dysphagia, tracheostomy, quadriplegia due to ALS, diabetes, anxiety, hypertension, remote C. diff history. ALLERGIES: CONTRAST DYE. MEDICATIONS: As noted on her MAR, having been given vancomycin, Zosyn and Levaquin in the Emergency Room. FAMILY HISTORY: Noncontributory. SOCIAL HISTORY: Nonsmoker, no significant alcohol intake. PHYSICAL EXAMINATION: VITAL SIGNS: Temperature is 99.3, heart rate 102, blood pressure 125/75 after IV fluid bolus. HEENT: Eyes were open, but not responsive. She had scleral edema and evidence of conjunctivitis. Mouth was without mucositis or ulceration. NECK: Supple. Tracheostomy was midline with no drainage. LUNGS: Coarse bilaterally with no consolidation or rub. BACK: Midline. [facility] [address] [place] [address] CONSULTATION Name: BRIGETTE RIVAS Room #: 241-P [facility] IN M.R.#: [id number] Admission: 09/06/18 Attend Phys: Marv Sheridan MD Discharge: Date of : 56 Report #: [id number] SKIN: Without rash or decubitus. No palpable adenopathy. HEART: Tachycardic and regular without murmur. ABDOMEN: Soft with unremarkable PEG site. No mass or hepatosplenomegaly. EXTREMITIES: With no cyanosis or edema. NEUROLOGIC: She was flaccid, unable to assess cranial nerves. PSYCHIATRIC: Mood: Unable to assess. LABORATORY STUDIES: Lactate 1.6. Urinalysis: Many wbc's, many bacteria, with blood in urine. Culture pending. Sodium 137, potassium 3.2, creatinine 0.4, alkaline phosphatase 122. Liver function test normal. Hemoglobin 8.7, platelet count 360,000, WBC 11.2. Chest x-ray with bilateral pulmonary infiltrates, right greater than left. IMPRESSION: Healthcare-associated septic shock, which has responded to IV fluids. Source of infection, urinary tract infection catheter related versus healthcare associated ventilatory associated pneumonia. Advanced ALS. Chronic respiratory failure. RECOMMENDATION: We will continue broad antibiotic coverage including vancomycin, Zosyn and Levaquin. Await blood, urine and sputum culture. Serial chest x-rays. Aspiration precautions. We will adjust her antibiotics as further culture results are known. Continue ICU support. <ELECTRONICALLY SIGNED> By: aMrtin Duncan MD 09/09/18 0918 1331 0419 Martin Duncan MD /nt
--- NOTE | ~2018-09-06 | HC ---
[facility] [place] [address] CONSULTATION Name: BRIGETTE RIVAS Room #: 241-P ADM IN M.R.#: [id number] Admission: 09/06/18 Attend Phys: Marv Sheridan MD Discharge: Date of : 56 Report #: [id number] THIS REPORT FOR: //name// CC: Servando Sheridan DATE OF SERVICE: 09/06/2018 PULMONARY CONSULTATION REFERRING PHYSICIAN: Dr. Sheridan. REASON FOR REFERRAL: Pneumonia. HISTORY OF PRESENT ILLNESS: The patient is a 58-year-old female, with ALS, presented to the Emergency Room with altered mental status and hypotension. A pulmonary consultation was requested. The patient is known to this physician from her earlier hospitalization from November 2017. Her neurologic symptoms, according to family, started about 2016. She was hospitalized in [facility] to undergo a surgical procedure for an apparent pinched nerve. Following the procedure, according to family, the patient started to develop weakness. Ever since then, she has had progressive neurodegenerative disorder. She was seen at [facility]. According to the family, workup was essentially unremarkable. ALS along with multiple sclerosis was ruled out. Her weakness subsequently worsened where she was hospitalized, developed respiratory failure and had a chronic tracheostomy. She has been in a long-term care facility ever since. She was doing fairly well at the LTAC where on the day of admission, she was found to be hypotensive along with altered mental status from her baseline. When she was last seen in February 2018, her speech was normal. Currently, her eyes are open, but she does not communicate. She appears quite weak. She has some spastic atrophy. PAST MEDICAL HISTORY: As mentioned above, progressive weakness leading to quadriplegia, unknown etiology, workup in the past has failed to lead to any diagnosis. Previous workup at [facility] was not diagnostic, status post tracheostomy, Shiley #6, she is vent dependent, dysphagia, status post PEG tube placement, diabetes mellitus type 2, anxiety disorder, hypertension, passage of C. difficile colitis. ALLERGIES: CONTRAST DYE, REACTIONS NOT SPECIFIED. MEDICATIONS: From the facility include DuoNeb, alprazolam, Merrem, Lovenox, [facility] [address] [place] [address] CONSULTATION Name: BRIGETTE RIVAS Room #: 241-P ADM IN M.R.#: [id number] Admission: 09/06/18 Attend Phys: Marv Sheridan MD Discharge: Date of : 56 Report #: [id number] insulin supplements, Norvasc, MiraLax, Lopressor, senna, melatonin. FAMILY HISTORY: Noncontributory. SOCIAL HISTORY: No tobacco or alcohol use. REVIEW OF SYSTEMS: As mentioned above, otherwise is deferred as the patient is not able to answer questions. PHYSICAL EXAMINATION: VITAL SIGNS: Temperature is 99 degrees Fahrenheit, pulse is 100, respiratory rate is 16, blood pressure 125/75 mmHg, saturation is 94%. HEENT: Normocephalic, atraumatic. NECK: Status post tracheostomy. CHEST: Breath sounds are fair, coarse breath sounds bilaterally. CARDIOVASCULAR: Normal S1, S2. No murmurs or gallop. There is no JVD. There is no carotid bruit. Pulses are 2+/4+ bilaterally. ABDOMEN: Soft, nontender, no organomegaly or masses felt. GENITOURINARY: Deferred. RECTAL: Deferred. EXTREMITIES: There is no edema, cyanosis or clubbing. LABORATORY DATA: Chest x-ray shows increased bilateral infiltrates, greater in the right than the left, tracheostomy in the appropriate position. Sodium 137, potassium 3.2, chloride 95, CO2 of 37, BUN 25, creatinine 0.4. Liver enzymes are mildly abnormal. WBC 11,200, hemoglobin is 8.7, platelets are normal, no evidence of bandemia. Arterial blood gas revealed pH 7.44, pCO2 of 49, pO2 of 77 and FiO2 of 35%. Albumin 2.4. IMPRESSION: 1. Acute on chronic hypoxic and hypercapnic respiratory failure in this 58-year-old female secondary to pneumonia. 2. 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 3. Encephalopathy, likely related to sepsis due to pneumonia. 4. Bilateral infiltrates, suspect pneumonia, nosocomial. 5. Chronic tracheostomy due to above. 6. Severe protein calorie malnutrition, albumin 2.4. 7. Anemia due to chronic disease. RECOMMENDATION: Agree with broad spectrum antibiotics, we will defer to infectious disease, continue mechanical ventilation, wean O2 for saturation 90%. Deep venous thrombosis and gastrointestinal prophylaxis will be indicated. Nutritional support once the patient is stable. Vasopressors and IV fluids will be recommended for her hypotension. [address] [place] [address] CONSULTATION Name: RIVASBRIGETTE Room #: [facility] IN M.R.#: [id number] Admission: 09/06/18 Attend Phys: Marv Sheridan MD Discharge: Date of : 56 Report #: [id number] Overall, appears to be grim given progressive neurologic degeneration. Thank you for this consultation. <ELECTRONICALLY SIGNED> By: Abdon Crowley MD 09/07/18 1611 1731 0755 Abdon Crowley MD /nt
[~2018-09-06 07:36] MED LIST: ACETAMINOPHEN325 M1 PO; ALPRAZOLAM 0.0.25 M1 PER TUBE; ALPRAZOLAM 0.50.5 M1 PER TUBE; ANTACID PLUS A355 M1 PER TUBE; ATIVAN1 MG PO; BUSPIRONE HCL10 MG PER TUBE; CIPRO250 M1 PO; DUONEB 2.5-0.5 M3 ML INH; ENOXAPARIN40 MG/0.1 SUBQ; FERREX 150 PLU1 EAC1 PO; FERREX 150150 MG PER TUBE; HUMALOG100 UNIT/2 SUBQ; HYDROCODON-ACE1 EAC7 PO; LANTUS SUBQ; LOPRESSOR25 PER TUBE; LOPRESSOR50 PER TUBE; MELATONIN3 MG PER TUBE; MERREM1 GM IV; NOVOLOG100 UNIT/1 SUBQ; PEPCID20 MG PER TUBE; POTASSIUM20 PO; PREVALITE PACKET4 GM PO; SEROQUEL 25 MG25 M1 PER TUBE; TUMS PER TUBE; XANAX 0.5 MG0.5 MG PO; ZOLOFT50 MG PER TUBE
[2018-09-06] MEDS ORDERED: NORVASC5 MG PO (07:52)
[2018-09-06] MEDS ORDERED: MIRALAX17 GM PO (07:53)
[2018-09-06] MEDS ORDERED: LOPRESSOR25 PO (07:54)
[2018-09-06] MEDS ORDERED: SENNA8.6 MG PO (07:55)
[2018-09-06] MEDS ORDERED: MELATONIN5 M1 PO (07:56)
[2018-09-06] MEDS ORDERED: SCOPOLAMINE1 EACH TRANSDERM (07:57)
[2018-09-06 08:17] LABS: ABSOLUTE NEUTROPHILS 8.3 thou/uL (1.4-8.2); BASOPHILS 0.2 % (0.0-2.0); HEMATOCRIT 26.7 % (37.0-47.0); HEMOGLOBIN 8.7 gm/dL (12.0-15.0); MCH 25.3 pg (26.0-34.0); MCHC 32.8 g/dL (28.0-37.0); MCV 77.3 fL (80.0-100.0); MONOCYTES 11.4 % (1.0-8.0); PLATELET COUNT 360 thou/uL (150-400); POLYS 74.4 % (36.0-66.0); RBC 3.45 mil/uL (4.20-5.00); RDW 20.3 % (10.5-14.5); WBC 11.2 thou/uL (4.0-11.0)
[2018-09-06 08:19] LABS: URINE BILIRUBIN NEGATIVE (Negative); URINE BLOOD 1+ (Negative); URINE CLARITY CLOUDY; URINE COLOR YELLOW; URINE GLUCOSE-RANDOM* 2+ (Negative); URINE KETONES NEGATIVE (Negative); URINE NITRITE-REFLEX NEGATIVE (Negative); URINE PROTEIN (DIPSTICK) 1+ (Negative); URINE SPECIFIC GRAVITY 1.015 (1.005-1.035); URINE UROBILINOGEN 0.2 E.U./dl (0.2-1.0)
[2018-09-06 08:20] LABS: URINE LEUKOCYTES-REFLEX 2+ (Negative)
[2018-09-06 08:21] LABS: BE(vivo) 7.8 mmol/L (-2 to +3); PCO2 49.1 mmHg (35.0-45.0); PO2 77.1 mmHg (80.0-100.0); pH 7.445 (7.360-7.450); sO2 95.7 % (92.0-98.0)
[2018-09-06 08:26] LABS: CALCIUM 10.9 mg/dL (8.5-10.1); CREATININE 0.4 mg/dL (0.6-1.0); POTASSIUM 3.2 mmol/L (3.5-5.1)
[2018-09-06 08:32] LABS: ALBUMIN 2.4 g/dL (3.4-5.0); DIRECT BILIRUBIN 0.2 mg/dL (<0.1-0.3); TOTAL BILIRUBIN 0.4 mg/dL (<0.1-1.0)
[2018-09-06 08:33] LABS: SQUAMOUS 4-10 Moderate /LPF (0-3)
[2018-09-06 08:34] LABS: CASTS None Seen /LPF (None Seen); CRYSTALS None Seen /LPF (None Seen); URINE RBC 0-2 Rare /HPF (0-2); URINE WBC-REFLEX >25 Many /HPF (0-5)
[2018-09-06 08:35] LABS: BACTERIA-REFLEX >30 Many /HPF (None Seen)
[2018-09-07] VITALS (75 sets, daily range): BP systolic 75–177; BP diastolic 41–94
[2018-09-07 04:37] LABS: HEMOGLOBIN 8.3 gm/dL (12.0-15.0); MCH 25.3 pg (26.0-34.0); MCHC 33.2 g/dL (28.0-37.0); MCV 76.1 fL (80.0-100.0); RBC 3.28 mil/uL (4.20-5.00); RDW 20.6 % (10.5-14.5); WBC 11.1 thou/uL (4.0-11.0)
[2018-09-07 04:43] LABS: CALCIUM 9.4 mg/dL (8.5-10.1); CREATININE 0.2 mg/dL (0.6-1.0)
[2018-09-07 04:45] LABS: POTASSIUM 2.4 mmol/L (3.5-5.1)
[2018-09-07 05:51] LABS: BE(vivo) 8.4 mmol/L (-2 to +3); HCO3 33.7 mmol/L (22.0-26.0); PO2 89.7 mmHg (80.0-100.0); sO2 96.9 % (92.0-98.0)
[2018-09-08] VITALS (70 sets, daily range): BP systolic 71–189; BP diastolic 37–95
[2018-09-08 02:52] LABS: HEMATOCRIT 24.2 % (37.0-47.0); HEMOGLOBIN 7.9 gm/dL (12.0-15.0); MCH 24.8 pg (26.0-34.0); MCHC 32.5 g/dL (28.0-37.0); MCV 76.1 fL (80.0-100.0); RBC 3.18 mil/uL (4.20-5.00); RDW 20.9 % (10.5-14.5); WBC 11.8 thou/uL (4.0-11.0)
[2018-09-08 03:05] LABS: ALBUMIN 1.8 g/dL (3.4-5.0); CALCIUM 9.9 mg/dL (8.5-10.1); CREATININE 0.3 mg/dL (0.6-1.0); POTASSIUM 3.7 mmol/L (3.5-5.1); TOTAL BILIRUBIN 0.4 mg/dL (<0.1-1.0); TOTAL PROTEIN 7.2 g/dL (6.4-8.2)
[2018-09-09] VITALS (60 sets, daily range): BP systolic 82–137; BP diastolic 45–76
[2018-09-09 06:00] LABS: WBC 11.1 thou/uL (4.0-11.0)
[2018-09-09 06:02] LABS: HEMATOCRIT 20.6 % (37.0-47.0); HEMOGLOBIN 6.7 gm/dL (12.0-15.0); MCH 24.9 pg (26.0-34.0); MCHC 32.7 g/dL (28.0-37.0); MCV 76.1 fL (80.0-100.0); RBC 2.7 mil/uL (4.20-5.00); RDW 20.6 % (10.5-14.5)
[2018-09-09 06:14] LABS: CALCIUM 9.2 mg/dL (8.5-10.1); CREATININE 0.5 mg/dL (0.6-1.0); POTASSIUM 3.8 mmol/L (3.5-5.1)
[2018-09-10] VITALS (39 sets, daily range): BP systolic 80–214; BP diastolic 45–110
[2018-09-10 04:43] LABS: RDW 21.2 % (10.5-14.5)
[2018-09-10 04:44] LABS: HEMATOCRIT 27.9 % (37.0-47.0); MCH 24.2 pg (26.0-34.0); MCHC 31.7 g/dL (28.0-37.0); MCV 76.4 fL (80.0-100.0); RBC 3.66 mil/uL (4.20-5.00)
[2018-09-10 04:47] LABS: CALCIUM 10.4 mg/dL (8.5-10.1); CREATININE 0.5 mg/dL (0.6-1.0); HEMOGLOBIN 8.9 gm/dL (12.0-15.0); POTASSIUM 3.9 mmol/L (3.5-5.1); WBC 36.9 thou/uL (4.0-11.0)
[2018-09-10 08:14] LABS: HEMATOCRIT 28.2 % (37.0-47.0); HEMOGLOBIN 8.9 gm/dL (12.0-15.0); MCH 24.3 pg (26.0-34.0); MCHC 31.5 g/dL (28.0-37.0); MCV 77.4 fL (80.0-100.0); RBC 3.65 mil/uL (4.20-5.00); RDW 21.5 % (10.5-14.5); WBC 22.9 thou/uL (4.0-11.0)
[2018-09-10 12:01] LABS: HEMOGLOBIN 7.9 gm/dL (12.0-15.0); MCH 24.5 pg (26.0-34.0); MCHC 31.7 g/dL (28.0-37.0); MCV 77.3 fL (80.0-100.0); RBC 3.24 mil/uL (4.20-5.00); RDW 21.4 % (10.5-14.5); WBC 17.3 thou/uL (4.0-11.0)
[2018-09-11] VITALS (31 sets, daily range): BP systolic 102–193; BP diastolic 61–100
[2018-09-11 05:22] LABS: HEMATOCRIT 25.3 % (37.0-47.0); HEMOGLOBIN 8.2 gm/dL (12.0-15.0); MCH 24.4 pg (26.0-34.0); MCHC 32.3 g/dL (28.0-37.0); MCV 75.5 fL (80.0-100.0); RBC 3.35 mil/uL (4.20-5.00); RDW 21.3 % (10.5-14.5); WBC 21.9 thou/uL (4.0-11.0)
[2018-09-11 05:33] LABS: CALCIUM 9.4 mg/dL (8.5-10.1); CREATININE 0.5 mg/dL (0.6-1.0); POTASSIUM 4.1 mmol/L (3.5-5.1)
[2018-09-12] VITALS (30 sets, daily range): BP systolic 103–176; BP diastolic 53–94
[2018-09-12 05:45] LABS: HEMATOCRIT 26.4 % (37.0-47.0); HEMOGLOBIN 8.5 gm/dL (12.0-15.0); MCH 24.8 pg (26.0-34.0); MCHC 32.1 g/dL (28.0-37.0); MCV 77.3 fL (80.0-100.0); PLATELET COUNT 432 thou/uL (150-400); RBC 3.41 mil/uL (4.20-5.00); RDW 21.2 % (10.5-14.5); WBC 25.3 thou/uL (4.0-11.0)
[2018-09-12 06:06] LABS: ALBUMIN 2.2 g/dL (3.4-5.0); CALCIUM 9.7 mg/dL (8.5-10.1); CREATININE 0.5 mg/dL (0.6-1.0); POTASSIUM 4.5 mmol/L (3.5-5.1); TOTAL BILIRUBIN 0.2 mg/dL (<0.1-1.0); TOTAL PROTEIN 8.1 g/dL (6.4-8.2)
[2018-09-12 08:52] LABS: ABSOLUTE NEUTROPHILS 21.8 thou/uL (1.4-8.2); ANISOCYTOSIS 2+; ATYPICAL LYMPHS 1 %; POLYCHROMASIA OCCASIONAL
[2018-09-13] VITALS (47 sets, daily range): BP systolic 92–168; BP diastolic 48–93
[2018-09-13 05:40] LABS: HEMATOCRIT 21.8 % (37.0-47.0); HEMOGLOBIN 7.2 gm/dL (12.0-15.0); MCH 24.7 pg (26.0-34.0); MCHC 32.9 g/dL (28.0-37.0); MCV 75.2 fL (80.0-100.0); RBC 2.9 mil/uL (4.20-5.00); RDW 21.5 % (10.5-14.5); WBC 15.9 thou/uL (4.0-11.0)
[2018-09-13 06:05] LABS: CALCIUM 9.8 mg/dL (8.5-10.1); CREATININE 0.5 mg/dL (0.6-1.0); POTASSIUM 4.7 mmol/L (3.5-5.1)
[2018-09-14] VITALS (37 sets, daily range): BP systolic 106–174; BP diastolic 60–94
[2018-09-15] VITALS (28 sets, daily range): BP systolic 90–179; BP diastolic 53–101
[2018-09-15 05:17] LABS: ABSOLUTE NEUTROPHILS 14.1 thou/uL (1.4-8.2); BASOPHILS 0.4 % (0.0-2.0); EOSINOPHILS 1.3 % (0.0-3.0); HEMATOCRIT 23.5 % (37.0-47.0); HEMOGLOBIN 7.7 gm/dL (12.0-15.0); LYMPHOCYTES 8.4 % (24.0-44.0); MCH 24.6 pg (26.0-34.0); MCHC 32.8 g/dL (28.0-37.0); MCV 74.8 fL (80.0-100.0); MONOCYTES 4.2 % (1.0-8.0); PLATELET COUNT 348 thou/uL (150-400); POLYS 85.7 % (36.0-66.0); RBC 3.14 mil/uL (4.20-5.00); RDW 21.9 % (10.5-14.5); WBC 16.5 thou/uL (4.0-11.0)
[2018-09-15 05:30] LABS: CALCIUM 10.2 mg/dL (8.5-10.1); CREATININE 0.6 mg/dL (0.6-1.0); POTASSIUM 4.6 mmol/L (3.5-5.1)
[2018-09-15 09:41] LABS: ANISOCYTOSIS 2+
[2018-09-16 03:15] VITALS: BP 111/70
[2018-09-16 07:28] VITALS: BP 138/84
[2018-09-16 12:25] VITALS: BP 138/87
[2018-09-16 16:06] VITALS: BP 152/92
[2018-09-16 19:40] VITALS: BP 120/72
[2018-09-17] VITALS (7 sets, daily range): BP systolic 93–176; BP diastolic 66–102
[2018-09-17 05:57] LABS: HEMATOCRIT 23.8 % (37.0-47.0); HEMOGLOBIN 7.7 gm/dL (12.0-15.0); MCH 24.4 pg (26.0-34.0); MCHC 32.2 g/dL (28.0-37.0); MCV 75.8 fL (80.0-100.0); RBC 3.14 mil/uL (4.20-5.00); RDW 21.4 % (10.5-14.5); WBC 16.7 thou/uL (4.0-11.0)
[2018-09-17 06:08] LABS: CALCIUM 10.3 mg/dL (8.5-10.1); CREATININE 0.5 mg/dL (0.6-1.0); POTASSIUM 4.8 mmol/L (3.5-5.1)
[2018-09-18 04:59] VITALS: BP 109/65
[2018-09-18 09:07] VITALS: BP 97/56
[2018-09-18 11:57] VITALS: BP 124/71
[2018-09-18] MEDS ORDERED: HYDROCODON-ACE1 EAC7 PO (12:28)
[2018-09-18] MEDS ORDERED: MILK OF MA2400 MG/10 PER TUBE (12:28)
[2018-09-18] MEDS ORDERED: MERREM1 GM IV (12:29)
[2018-09-18] MEDS ORDERED: PEPCID20 MG PER TUBE (12:29)
[2018-09-18] MEDS ORDERED: NOVOLOG100 UNIT/1 SUBQ (12:29)
[2018-09-18 19:25] VITALS: BP 143/81
[2018-09-18 20:21] VITALS: BP 154/98
== END 2018-09-18 21:00 | DRG 870 ==
LOC: ER 07:36 → ICU 09:29 → EROBS 09:29 → 3W 09:29 → ICU 10:51 → 3W 09-15 17:15
PROVIDERS: Emergency Medicine; Internal Medicine Geriatric Medicine; Internal Medicine Pulmonary Disease; Pediatrics; Specialist
DX: A41.9 Sepsis, unspecified organism (principal); J96.21 Acute and chronic respiratory failure with hypoxia; G92 Toxic encephalopathy; R65.21 Severe sepsis with septic shock; R53.2 Functional quadriplegia; E43 Unspecified severe protein-calorie malnutrition; J96.22 Acute and chronic respiratory failure with hypercapnia; J18.1 Lobar pneumonia, unspecified organism; N39.0 Urinary tract infection, site not specified; E44.0 Moderate protein-calorie malnutrition; J95.851 Ventilator associated pneumonia; Z99.11 Dependence on respirator [ventilator] status; F41.9 Anxiety disorder, unspecified; I10 Essential (primary) hypertension; E11.9 Type 2 diabetes mellitus without complications; Y95 Nosocomial condition; D63.8 Anemia in other chronic diseases classified elsewhere; I95.9 Hypotension, unspecified; G31.9 Degenerative disease of nervous system, unspecified; G90.8 Other disorders of autonomic nervous system; R00.1 Bradycardia, unspecified; B96.1 Klebsiella pneumoniae [K. pneumoniae] as the cause of diseases classified elsewhere; Y83.8 Other surgical procedures as the cause of abnormal reaction of the patient, or of later complication, without mention of misadventure at the time of the procedure; Z16.24 Resistance to multiple antibiotics; B96.89 Other specified bacterial agents as the cause of diseases classified elsewhere; Z79.899 Other long term (current) drug therapy; Z79.4 Long term (current) use of insulin; Z91.041 Radiographic dye allergy status; Z93.0 Tracheostomy status; Z93.1 Gastrostomy status; Z68.30 Body mass index [BMI] 30.0-30.9, adult; Y92.89 Other specified places as the place of occurrence of the external cause
CPT/HCPCS: 10078; 10879

== ENCOUNTER 2018-12-13 11:05 | Inpatient (IN) | payer OTHER ==
[2018-12-13] VITALS (16 sets, daily range): BP systolic 72–156; BP diastolic 36–81
[~2018-12-13] VITALS: Ht 157.5 cm; Wt 87.5 kg
[~2018-12-13 11:05] MED LIST changes: +LOPRESSOR25 PO; +MELATONIN5 M1 PO; +MILK OF MA2400 MG/10 PER TUBE; +MIRALAX17 GM PO; +NORVASC5 MG PO; +SCOPOLAMINE1 EACH TRANSDERM; +SENNA8.6 MG PO
[2018-12-13 11:27] LABS: BE(vivo) 18.6 mmol/L (-2 to +3); PCO2 70.6 mmHg (35.0-45.0); pH 7.422 (7.360-7.450)
--- NOTE | 2018-12-13 11:37 | NUR ---
IV ATTEMPTS X3, NO ACCESS OR SPECIMENT OBTAINED AT THIS TIME
[2018-12-13] MEDS ORDERED: B12INJ IM (11:39)
[2018-12-13] MEDS ORDERED: FERROUS SU300 MG/5 M PER TUBE (11:40)
[2018-12-13] MEDS ORDERED: MAPAP160 MG/51 PER TUBE (11:44)
[2018-12-13] MEDS ORDERED: AMOXICILLIN 50500 MG PER TUBE (11:46)
[2018-12-13 11:57] LABS: WBC 10.4 thou/uL (4.0-11.0)
[2018-12-13 11:59] LABS: HEMATOCRIT 20.5 % (37.0-47.0); MCH 21.3 pg (26.0-34.0); MCHC 31.1 g/dL (28.0-37.0); MCV 68.5 fL (80.0-100.0); PLATELET COUNT 429 thou/uL (150-400); RBC 2.99 mil/uL (4.20-5.00); RDW 22.9 % (10.5-14.5)
[2018-12-13 12:05] LABS: HEMOGLOBIN 6.4 gm/dL (12.0-15.0)
[2018-12-13] MEDS ORDERED: NORCO 5-325 TA1 EACH PO (12:06)
[2018-12-13 12:08] LABS: ANION GAP < 0 mmol/L (7-16); BUN 18 mg/dL (7-18); CHLORIDE 94 mmol/L (98-107); CO2 44 mmol/L (21-32); CREATININE 0.2 mg/dL (0.6-1.0); GLUCOSE 148 mg/dL (74-106); POTASSIUM 4.6 mmol/L (3.5-5.1); SODIUM 137 mmol/L (136-145)
[2018-12-13] MEDS ORDERED: CYANOCOBAL1000 MCG/1 IM (12:09)
[2018-12-13] MEDS ORDERED: MAG-AL LIQUID30 ML PER TUBE (12:13)
[2018-12-13] MEDS ORDERED: IPRAT-ALBUT 0.5-3 ML INH (12:14)
[2018-12-13] MEDS ORDERED: FLUSH FLUSH (12:15)
[2018-12-13 12:17] LABS: TROPONIN-I <0.06 ng/mL (<0.06)
[2018-12-13] MEDS ORDERED: ANTIFUNGAL TOP (12:17)
[2018-12-13 12:56] LABS: ABSOLUTE NEUTROPHILS 6.8 thou/uL (1.4-8.2); ANISOCYTOSIS 2+; HYPOCHROMASIA 2+; METAMYELOCYTES 1 %; MICROCYTES 2+; PLATELET ESTIMATE NORMAL
--- NOTE | 2018-12-13 13:41 | EKG ---
[address] [address] ELECTROCARDIOGRAM REPORT Name: BRIGETTE RIVAS Room #: 170-6 ADM IN M.R.#: [id number] Admission: 12/13/18 Attend Phys: Marv Sheridan MD Discharge: Date of : 56 Report #: [id number] THIS REPORT FOR: //name// [facility] ED Test Date: 2018-12-13 Test Time: 11:15:32 Pat Name: BRIGETTE RIVAS Department: Room: 170 Gender: F Assistant Professor Sculpture: : 1960 Requested By: Sachin Rios Order Number: [id number] MD: Rober Michelle Measurements Intervals Alsen Rate: 117 P: 95 GA: 141 QRS: 57 QRSD: 79 T: 9 QT: 279 QTc: 390 Interpretive Statements Sinus tachycardia Biatrial enlargement Borderline T wave abnormalities Compared to ECG 03/18/2018 12:54:46 Atrial abnormality now present T-wave abnormality now present Early repolarization no longer present Electronically Signed On 12-13-2018 13:40:59 POWER MARKETER by Rober Michelle [email or web address] <ELECTRONICALLY SIGNED> By: Rober Michelle MD 12/13/18 1340 1115 1115 Rober Michelle MD /EPI
--- NOTE | 2018-12-13 14:16 | NUR ---
[facility] [phone]
[2018-12-13 14:26] LABS: URINE CLARITY HAZY; URINE COLOR YELLOW; URINE SPECIFIC GRAVITY 1.015 (1.005-1.035)
[2018-12-13 14:27] LABS: URINE BILIRUBIN NEGATIVE (Negative); URINE BLOOD NEGATIVE (Negative); URINE GLUCOSE-RANDOM* NEGATIVE (Negative); URINE KETONES NEGATIVE (Negative); URINE LEUKOCYTES-REFLEX 1+ (Negative); URINE NITRITE-REFLEX NEGATIVE (Negative); URINE PROTEIN (DIPSTICK) TRACE (Negative); URINE UROBILINOGEN 0.2 E.U./dl (0.2-1.0)
[2018-12-13 14:33] LABS: URIC ACID CRYSTALS 0-3 Few /LPF (None Seen)
[2018-12-13 14:34] LABS: SQUAMOUS 0-3 Few /LPF (0-3); URINE RBC None Seen /HPF (0-2); URINE WBC-REFLEX 0-5 Rare /HPF (0-5)
[2018-12-13 14:35] LABS: BACTERIA-REFLEX 1-9 Few /HPF (None Seen); HYALINE CASTS 0-3 Few /LPF (None Seen)
--- NOTE | 2018-12-13 19:37 | NUR ---
Patient arrived from ER this evening. Patient is unresponsive, does not withdraw from pain or flinch to visual stimulation. Pupils are reactive, equal, though sluggish. History of ALS. No movement of any extremities - extremely flaccid. Extremities propped with pillows. Q 2 hour turn. DaughterGenet at bedside, and is very specific with how patient is to be repositioned, how extremities should be positioned, how patient likes head positioned, etc. Profo boots in place. Bilateral SCDs applied. Chronic vent / trach from [facility]. #6 Shiley trach. Continuous pulse ox in place. In-line suction and Yaunker at bedside for frequent secretions. Admission history, education and assessment completed. IVF infusing per orders. Tube feeding to Peg tube - not currently at goal rate, will increase if tolerating. Admit with chronic Funez. Two units of blood ordered - to give onetime dose of Lasix in between units. May recheck H&H post transfusion, but do not call Dr. Sheridan with results. He will check in the morning. Will continue to monitor.
[2018-12-13 21:24] LABS: BE(vivo) 14.9 mmol/L (-2 to +3); HCO3 42.6 mmol/L (22.0-26.0); PO2 199.3 mmHg (80.0-100.0); sO2 99.2 % (92.0-98.0)
[2018-12-13 21:25] LABS: PCO2 83.8 mmHg (35.0-45.0); pH 7.324 (7.360-7.450)
--- NOTE | 2018-12-13 23:26 | NUR ---
PT TRANSFERRED FROM [facility] TO ICU ROOM 244 AT 2100. PT NON-RESPONSIVE, QUADRAPLEGIC SECONDARY TO ALS, VENTILATOR DEPENDENT. TRANSFERRED TO ICU FOR DESATURATION, POSSIBLE MUCOUS PLUGGING OF TRACHEOSTOMY. PT SINUS TACHYCARDIA ON MONITOR, RATES 110-115. O2 SAT 95-100% ON VENT SETTINGS Tv 500, FiO2 100%, AC 16, PEEP 5. ABGs DONE ON ARRIVAL TO UNIT AND CALLED TO DR. HULL. VENT ADJUSTED FOR pCO2 OF 83.3; AC INCREASED TO 20, O2 TITRATED TO 50%. PT RECEIVING 2 UPCs FOR HGB OF 6.4.
--- NOTE | 2018-12-13 23:35 | NUR ---
ASSUMED CARE OF PT AT 1900. PT WAS UNRESPONSIVE ON VENTILATION THROUGH TRACH. PT WAS CLEAN, DRY AND APPEARED TO BE WELL POSITIONED WITH IV FLUIDS AND TF RUNNING. PT'S HR ADRIEN'D DOWN TO 30'S AND WITHIN MINUTES BECAME TACHY IN 130s. PT HAS COPIOUS AMOUNTS OF WHITE-GREEN THICK SECRETIONS. WHILE SUCTIONING AND RIGHT AFTER SHIFT CHANGE, PT STOPPED BREATHING. RT AND THIS RN ATTEMPTED MORE SUCTIONING, CHANGING POSITIONS, READJUSTING INNER CANNULA. PT WOULD NOT BREATHE FOR OVER A FULL MINUTE. O2 SATURATIONE DROPPED INTO 70'S. PT STARTED BREATHING AGAIN AFTER A MINUTE. CONTACTED DR AND ORDERS FOR TRANSFER TO ICU FOLLOWED. REPORT GIVEN AND PT WAS TRANSFERRED TO [facility].
[2018-12-14] VITALS (24 sets, daily range): BP systolic 77–148; BP diastolic 42–85
--- NOTE | 2018-12-14 00:58 | NUR ---
DELAY IN STARTING IV ANTIBIOTIC Pipercillin due to patient receiving blood transfusion for Hgb 6.4. Attempted to gain second IV site x5 by two RNs without success. Will start Pipercillin as soon as transfusion complete; pt had loading dose of Vancomycin pre-transfusion.
[2018-12-14 05:53] LABS: BE(vivo) 11.7 mmol/L (-2 to +3); PO2 86.1 mmHg (80.0-100.0); pH 7.412 (7.360-7.450); sO2 96.3 % (92.0-98.0)
--- NOTE | 2018-12-14 06:27 | NUR ---
END OF SHIFT SUMMARY: Pt has remained stable overnight. Monitor has stayed sinus tachycardia with rates 105-115; pt had one episode of sinus bradycardia down to 41 when suctioned. Blood pressure has been labile but MAP generally > 60. Pt received 2 upc's without complication. Remains on vent with FiO2 50%; ABG this morning improved, pCO2 down to 61 from 83.8. Pt suctioned orally of thin clear, frothy secretions approximately q 1 hour and moderate to large amounts of thin yellow secretions from trach approximately q 2 hours. When pt layed <30 degrees she frequently has milky yellow secretions leaking around trache. Appears to be tolerating tube feeding; no residuals, no abdominal distension. Tube feeding titrated from 30 cc/hour up to goal rate of 50 cc/hr, also receiving 150 cc water bolus q 6 hours. Skin integrity remains intact.
[2018-12-14 06:46] LABS: CALCIUM 9.5 mg/dL (8.5-10.1); CREATININE 0.3 mg/dL (0.6-1.0); POTASSIUM 4.8 mmol/L (3.5-5.1)
--- NOTE | 2018-12-14 07:34 | H ---
[facility] [place] [address] HISTORY AND PHYSICAL Name: BRIGETTE RIVAS Room #: 244-P ADM IN M.R.#: [id number] Admission: 12/13/18 Attend Phys: Marv Sheridan MD Discharge: Date of : 56 Report #: [id number] THIS REPORT FOR: //name// CC: Marv MUNOZ unknown DATE OF SERVICE: 12/13/2018 CHIEF COMPLAINT: Abnormal lab work and x-ray. HISTORY OF PRESENT ILLNESS: The patient is a 58-year-old chronic ventilator patient sent to the ER from [facility] for evaluation of abnormal lab and x-ray. She has ALS, which is terminal and is ventilator dependent now for approximately 2 years or longer. She has failed ventilator weaning attempts in the past. In the past 6 months, her neurologic status has progressed to the point where she is basically unresponsive, when I walked in persistent vegetative state at this point. According to the care facility, she had an x-ray showing infiltrate and hemoglobin of 6.4. PAST MEDICAL HISTORY: Diabetes type 2, hypertension, anemia of chronic disease, ALS, chronic hypercapnic hypoxic respiratory failure. She has had multiple admissions for pneumonia, UTI and sepsis. She has had resistant organisms in the sputum. PAST SURGICAL HISTORY: Unknown other than trach and PEG. FAMILY HISTORY: Unknown. SOCIAL HISTORY: Unobtainable. ALLERGIES: CONTRAST DYE. MEDICATIONS: DuoNeb, hydrocodone, Zoloft, Xanax, scopolamine, insulin. REVIEW OF SYSTEMS: She is unable to give review. OBJECTIVE: VITAL SIGNS: Temperature 37.1, pulse 112, respirations 16, blood pressure 156/81, O2 sat 97% on the ventilator. GENERAL: She is not responsive. HEAD AND NECK: She has protrusion of her tongue. Eyes are open, no response, seems to have a fixed gaze. NECK: Shows a tracheostomy in place. LUNGS: Anterior rhonchi. HEART: Tachy, regular. ABDOMEN: Soft, normoactive bowel sounds with PEG. [facility] [address] [place] [address] HISTORY AND PHYSICAL Name: BRIGETTE RIVAS Room #: [address] [place] [address] IN M.R.#: [id number] Admission: 12/13/18 Attend Phys: Marv Sheridan MD Discharge: Date of : 56 Report #: [id number] EXTREMITIES: Some nonpitting edema of the arms, no edema of the legs. NEUROLOGIC: She has no spontaneous movement or purposeful interaction. LABORATORY DATA: Hemoglobin 6.4, MCV 68, white count 10. BNP was 520. Troponin negative. ABG with pH 7.4, pCO2 of 70, pO2 of 84 on 55% FiO2. Urinalysis noted. Chest x-ray noted. Venous Doppler ultrasound of the legs shows no DVT. ASSESSMENT: 1. Healthcare-associated pneumonia. 2. Chronic hypercapnic respiratory failure. 3. Compensated chronic respiratory acidosis. 4. Amyotrophic lateral sclerosis. 5. Ventilator dependence. 6. Quadriparesis. 7. Microcytic anemia. 8. Diabetes type 2. 9. Autonomic dysfunction due to amyotrophic lateral sclerosis. PLAN: At this point, we will place her on empiric antibiotics for healthcare-associated pneumonia. We will transfuse 2 units of blood. She has had some hypotension and tachycardia in the ER, no plans for Lovenox DVT prophylaxis at this point due to the unexplained microcytic anemia with concerns of probably GI loss despite adequate iron replacement via PEG from the nursing facility. SCDs will be used, but hold off on Lovenox. No plans for ventilator weaning. She has a terminal neurologic condition. Supportive measures, otherwise. Once her lab numbers and oxygenation are fairly stable, she will return to [facility]. <ELECTRONICALLY SIGNED> By: Marv Sheridan MD 12/14/18 0734 1603 1623 Marv Sheridan MD /nt
[2018-12-14 11:30] LABS: HEMATOCRIT 25.5 % (37.0-47.0); MCH 22.2 pg (26.0-34.0); MCHC 31.3 g/dL (28.0-37.0); MCV 70.9 fL (80.0-100.0); RBC 3.6 mil/uL (4.20-5.00); RDW 23.8 % (10.5-14.5); WBC 19.6 thou/uL (4.0-11.0)
[2018-12-14 13:18] LABS: CLARITY TURBID; COLOR YELLOW; SOURCE BRONCH; TOTAL VOLUME 20 mL
[2018-12-14 13:19] LABS: BF MACROPHAGE 2; BF NEUTROPHILS 95
--- NOTE | 2018-12-14 15:55 | NUR ---
PT NON-RESPONSIVE NO RESPONSE TO ANY KIND OF STIMULATION. VSS, 100%VENT/TACH. SUCTIONED SEVERAL TIMES THIS SHIFT WITH LARGE AMOUNT OF SECRETIONS. BRONCHOSCOPY ALSO DONE TODAY AT BEDSIDE, SPECIMENS SENT LAB. SR TY DC TO [facility]. TUBE FEEDING INFUSING PER PEG AT GOAL RATE OF 50 WITHOUT ISSUES. PT DOES NOT APPEAR TO BE IN ANY PAIN/DISTRESS. PT TURNED FREQUENTLY THIS SHIFT. WILL CONTINUE TO MONITOR.
[2018-12-15] VITALS (24 sets, daily range): BP systolic 83–114; BP diastolic 40–64
[2018-12-15 05:27] LABS: BE(vivo) 11.8 mmol/L (-2 to +3); HCO3 37.4 mmol/L (22.0-26.0); PCO2 54.6 mmHg (35.0-45.0); PO2 69.1 mmHg (80.0-100.0); pH 7.454 (7.360-7.450); sO2 94.3 % (92.0-98.0)
[2018-12-15 05:55] LABS: HEMATOCRIT 25.8 % (37.0-47.0); HEMOGLOBIN 8.4 gm/dL (12.0-15.0); MCH 22.7 pg (26.0-34.0); MCHC 32.4 g/dL (28.0-37.0); RBC 3.68 mil/uL (4.20-5.00); RDW 23.9 % (10.5-14.5); WBC 12.7 thou/uL (4.0-11.0)
--- NOTE | 2018-12-15 06:00 | NUR ---
REMAINS TRACHED AND VENTED. EXTREM FLACCID. END STAGES OF ALS FIO2 40 % LUNGS COARSE BILAT. SUCTIONED VIA TRACH FOR A MOD TO LG AMT SECRETIONS. SIMNUS RHYTHM. TO TUBE FEEDINGS AT 50 CC PER HOUR BATHED REPSOTIONED. WILL CONT TO MONITOR
[2018-12-15 06:03] LABS: CALCIUM 10.2 mg/dL (8.5-10.1); CREATININE 0.5 mg/dL (0.6-1.0); POTASSIUM 3.9 mmol/L (3.5-5.1)
--- NOTE | 2018-12-15 07:43 | HC ---
[facility] [place] [address] CONSULTATION Name: BRIGETTE RIVAS Room #: 244-P ADM IN M.R.#: [id number] Admission: 12/13/18 Attend Phys: Marv Sheridan MD Discharge: Date of : 56 Report #: [id number] THIS REPORT FOR: //name// CC: Marv MUNOZ unknown DATE OF SERVICE: 12/14/2018 ATTENDING PHYSICIAN: Marv Sheridan MD. REASON FOR CONSULTATION: Healthcare-associated pneumonia. HISTORY OF PRESENT ILLNESS: A 58-year-old woman with end-stage amyotrophic lateral sclerosis on mechanical ventilator for a couple of years, is transferred from the local long-term acute facility to [place] with possible new onset pneumonia. The patient is on the ventilator, unable to provide any information. The information is gathered from the review of records. PAST MEDICAL HISTORY: Diabetes mellitus type 2. Hypertension. Anemia of chronic disease. Chronic respiratory failure, mechanical ventilator dependent. Multiple episodes of pneumonia and UTIs. Amyotrophic lateral sclerosis. Status post permanent gastrostomy and tracheostomy. Chronic ventilator dependence. DRUG ALLERGIES: INTRAVENOUS IV DYE. MEDICATIONS: The patient is currently on treatment with Levaquin 750 mg IV daily, vancomycin 1 gram IV every 12 hours, Zosyn 3.375 grams IV every 8 hours, chlorhexidine oral care, insulin lispro per sliding scale, p.r.n. glucose glucagon, scopolamine patch transdermal every 30 hours, Atrovent and albuterol inhalation treatments, p.r.n. ondansetron, p.r.n. Tylenol, p.r.n. hydrocodone. She received Lasix single dose. Tube feedings ongoing. SOCIAL HISTORY: See H and P, old records. FAMILY HISTORY: See H and P, old records. REVIEW OF SYSTEMS: Unable to obtain. PHYSICAL EXAMINATION: GENERAL: Chronically ill-appearing woman. VITAL SIGNS: Temperature on admission 98.7, pulse 119, respirations 20, BP 111/69. Today's temperature is 99.1. HEENMT: Sunken conjunctival injection and chemosis. Tongue protruding from mouth, unable to examine, follows no commands. NECK: Tracheostomy in place. LUNGS: Decreased breath sounds, crackles, left lung base. [facility] [address] [place] [address] CONSULTATION Name: BRIGETTE RIVAS Room #: [address] [place] [address] IN [facility].#: [id number] Admission: 12/13/18 Attend Phys: Marv Sheridan MD Discharge: Date of : 56 Report #: [id number] HEART: S1, S2. No gallop or murmur. ABDOMEN: Percutaneous gastrostomy, left upper quadrant, soft, no masses or megaly. PELVIC AND RECTAL: Deferred. EXTREMITIES: No clubbing, cyanosis. NEUROLOGIC: Unable to evaluate. I suspect the patient may be quadriplegic by now. LABORATORY DATA: Sodium 137, potassium 4.6, chloride 94, CO2 44, BUN 18, creatinine 0.2, glucose 148, NT-proBNP 520. WBC 10.4, hemoglobin 6.4. The MCV is 68, MCH 21.3, suspect iron deficiency anemia versus thalassemia. Her white blood cell count differential revealed 32% segmented neutrophils, 33% bands. Urinalysis revealed bacteriuria, positive for uric acid crystals. ABGs: pH 7.42, pCO2 70, pO2 84, bicarbonate 45. Lactate 0.84. This set of gases is on FiO2 of 50%. MICROBIOLOGY DATA: Nasopharyngeal swab for influenza is pending, received blood cultures negative so far. Sputum culture pending. On 09/12/2018, her sputum culture revealed Acinetobacter baumannii sensitive only to tigecycline. Previously, she has Pseudomonas aeruginosa, this was sensitive to Zosyn on 03/19/2018. ASSESSMENT: 1. Healthcare-associated pneumonia, chronic respiratory failure, ventilator dependent. 2. Amyotrophic lateral sclerosis. 3. Quadriparesis. 4. Severe microcytic anemia. 5. Diabetes mellitus. SUGGESTIONS: Recommend continue treatment with Levaquin, Zosyn and vancomycin as you are already planned. The only addition is that of Minocin 100 mg per feeding tube [address] Sheridan, thank you for requesting my suggestions. <ELECTRONICALLY SIGNED> By: Miguel Michelle MD 12/15/18 0743 0705 1112 Miguel Michelle MD /nt
--- NOTE | 2018-12-15 08:56 | NUR ---
care of pt assumed this am @ ~0700. pt resting quietly and comfortably in bed, as pt just received a bth and linen change from noc shift. pt noted to open eyes when her name was stated, not other movement noted. pt w/ trachestomy and ventilator dependent. rt and dr. mckeon @ bs w/ ivp tx this am. iv antibx tx infusing w/o issue. tf infusing w/o issue. roland functional and draining to dd bag. no family at bs at this time.
--- NOTE | 2018-12-15 16:05 | NUR ---
VASCULAR ACCESS CONSULTED FOR A CL FOR THIS PT WITH ALS, IS A QUAD, NO MOBILITY, AND HIGH RISK FOR A DVT. CONSENT OBTAINED FROM DAUGHTER AND TIME OUT WITH FREDIS PITTMAN DONE. LINE WAS PLACED PER P&P WITH US GUIDE AND ATTEMPT X1. A 25CM JACC WAS INSERTED AND SECURED. A CXR REVEALED THE TIP IN THE [facility]UM. PULLED LINE BACK 3CM AND A TOTAL OF 8CM EXTERNAL SECURED. RELEASED TO RN FOR USE.
--- NOTE | 2018-12-15 21:00 | NUR ---
PT DID NOT TOLERATE IVP TREATMENT. HEART RATE AND O2 SATS DROPPED. DR HULL NOTIFIED AND SAID HE WOULD BE HERE IN THE AM TO BE WITH PT FOR THE NEXT IVP. WILL CONT TO MONITOR.
[2018-12-16] VITALS (14 sets, daily range): BP systolic 91–128; BP diastolic 54–75
[2018-12-16 04:17] LABS: HEMOGLOBIN 7.5 gm/dL (12.0-15.0); MCH 22.9 pg (26.0-34.0); MCHC 32.6 g/dL (28.0-37.0); MCV 70.4 fL (80.0-100.0); RBC 3.27 mil/uL (4.20-5.00); WBC 12.1 thou/uL (4.0-11.0)
[2018-12-16 04:40] LABS: CALCIUM 9.6 mg/dL (8.5-10.1); CREATININE 0.5 mg/dL (0.6-1.0)
--- NOTE | 2018-12-16 06:00 | NUR ---
REMAINS TRACHED AND VENTED. LUNGS VERY COARSE BILAT. SUCTIONED OUT LARGE AMT THICK YELLOWISH SPUTUM. ZEV TUBE FEEDING. ONE MOD BROWN SOFT STOOL THIS AM. SINUS RHYTHM. EYES ARE VERY REDDENED THIS AM. FOLLOWS NO COMMANDS. VSS BATHED. WILL CONT TO MONITOR CLOSELY.
--- NOTE | 2018-12-16 13:53 | NUR ---
FAXED REFERRAL TO [facility], SPOKE WITH ALYSHA IN ADM. SHE RECEIVED REFERRAL AND WILL REVIEW. ANTICIPATE DC SUNDAY OR SUNDAY. DCP TO FOLLOW.
--- NOTE | 2018-12-16 18:36 | NUR ---
care of pt assumed this am @ ~ 0700. pt ventilator dependent. no change to settings today. pt w/ need to be sx every 1-2hrs throughout day. pt w/ no gag or cough reflex. pt received ivp tx per rt today, w/ no episodes of bradycardia or desaturation. dr. barbosa made changes in management of vancomycin, trough drawn this evening, w/ critical value of 21, dr. barbosa notified with another change in vancomycin tx. pt visited by x3 family members today. pt noted to open eyes to her name being spoken by rn and when rn explaining what she would be doing for the pt.
--- NOTE | 2018-12-16 23:30 | NUR ---
ASSUMED CARE OF PT AT 1900. PT IS ABLE TO OPEN EYES TO VERBAL STIMULATION. PT IS ABLE TO TRACK WITH EYES ON HER LEFT SIDE. SHE IS UNABLE TO GAZE TOWARDS THE RIGHT. SHE IS ABLE TO MAKE NEEDS KNOW WITH GAZE ON LEFT SIDE. SHE IS SR ON THE MONITOR. VSS. PEG/TRACH. VENT SETTING REMAIN THE SAME. PT TOLERATING TUBE FEEDINGS. DAUGHTER CALLED AND UPDATED ON PT CARE. GOOD URINE OUTPUT. WILL CONTINUE TO MONITOR.
[2018-12-17] VITALS (16 sets, daily range): BP systolic 91–117; BP diastolic 49–73
[2018-12-17 05:48] LABS: HEMATOCRIT 25.2 % (37.0-47.0); MCH 22.3 pg (26.0-34.0); MCHC 31.9 g/dL (28.0-37.0); MCV 70.1 fL (80.0-100.0); RBC 3.59 mil/uL (4.20-5.00); RDW 25.4 % (10.5-14.5); WBC 12.2 thou/uL (4.0-11.0)
[2018-12-17 05:54] LABS: CREATININE 0.5 mg/dL (0.6-1.0); POTASSIUM 4.3 mmol/L (3.5-5.1)
[2018-12-17] MEDS ORDERED: MINOCIN50 MG PO (09:28)
[2018-12-17] MEDS ORDERED: AKWA TEARS OIN3.5 GM OPHTHALMIC (09:29)
[2018-12-17] MEDS ORDERED: NOVOLOG100 UNIT/1 SUBQ (09:29)
[2018-12-17] MEDS ORDERED: ONDANSETRON HCL4 M1 IV PUSH (09:29)
[2018-12-17] MEDS ORDERED: IPRAT-ALBUT 0.5-3 ML INH (09:29)
[2018-12-17] MEDS ORDERED: VENOFER50 MG/2.5 IV (09:30)
[2018-12-17] MEDS ORDERED: NYSTATIN100000 UNI SW&SWALLOW (09:31)
[2018-12-17] MEDS ORDERED: ZOSYN 3.3753.375 GM IV (09:31)
[2018-12-17] MEDS ORDERED: LEVAQUIN 750 M750 MG IV (09:33)
[2018-12-17] MEDS ORDERED: VANC750 IV (09:34)
--- NOTE | 2018-12-17 12:46 | NUR ---
PT. DISCHARGING TODAY TO [facility]. ARRANGED TRANSPORTATION VIA [facility] ([facility]) PT. VENT DEPENDENT. TRANSPORT TIME IS 1730. FAMILY NOTIFIED PER . UNIT NOTIFIED AND CHART COPY PER US. RN TO CALL REPORT TO [phone].
--- NOTE | 2018-12-17 13:30 | NUR ---
INSURANCE AUTH OBTAINED FOR LTACH STAY AT [facility]. PLANS FOR DC TODAY. [facility] MANAGING COGNITIVE ENGINEER ALYSHA NOTIFIED DTR NETTA WHO IS AGREEABLE TO DC TO LTACH SIDE TODAY AND REQUESTS AMBULANCE ARCHITECT INTERNSHIP TIME OF 1730. RN GIVEN # FOR REPORT. ALYSHA MET WITH PT TO EXPLAIN DC PLAN. PT WILL TRANSPORT WITH VENT PER [facility].
--- NOTE | 2018-12-17 15:07 | NUR ---
PATIENT AWAKE AT TIMES BUT VERY DROWSY. UNABLE TO DETERMINE NEURO STATUS PATIENT WILL LOOK AT YOU BUT I DO NOT FEEL LIKE SHE IS TRACKING. PATIENT KEPT TURNED Q2H FOR COMFORT AND PRESSURE RELIEF. PATIENT DAUGHTER CALLED TO CHECK UP ON PATIENT. PATIENT DISCHARGING TO [facility] SKILLED UNIT. NO FURTHER CONCERNS AT THIS TIME. WILL CONTINUE TO MONITOR AND CARE PER PLAN OF CARE.
--- NOTE | 2018-12-17 17:03 | NUR ---
REPORT CALLED TO [facility] AT 1703 AND SPOKE WITH JAUN. PHONE NUMBER GIVEN IF SHE HAS ADDIONAL QUESTIONS.
--- NOTE | 2018-12-20 12:07 | PATH ---
[facility] [address] [place] [address] PATHOLOGY RPT PROCEDURE Name: BRIGETTE RIVAS Room #: 244-P DIS IN M.R.#: [id number] Admission: 12/13/18 Date of : 56 Discharge: 12/17/18 Report #: [id number] Path Case #: [id number] Note [facility] Accession Number: [id number] TESTS RESULT FLAG UNITS REF RANGE LAB Clinician Provided Cytology Information No. of containers..01 Other (Miscellaneous) Source: 01 TRANSBRONCH NDLE ASP DIAGNOSIS: 02 TRANSBRONCH NEEDLE ASPIRATE NEGATIVE FOR MALIGNANT CELLS. NORMAL BRONCHIAL CELLS AND MACROPHAGES ARE PRESENT. THIS INTERPRETATION INCLUDES EVALUATION OF A CELL BLOCK. ACUTE AND CHRONIC INFLAMMATORY CELLS. Signed out by: 02 Tammie Turner MD, Pathologist NPI- [id number] Performed by: Krystle John, Assistive Technology Specialist ([facility]) Gross description: 01 5 ML, CLOUDY, JUNIOR /LCS FLAG LEGEND: L-Low Normal,H-High Normal,LL-Alert Low,HH-Alert High <-Panic Low,>-Panic High,A-Abnormal,AA-Critical Abnormal Performed at: [address] [place] [address] Ab Sheikh MD, [address] [place] [id number] Tammie Turner MD, Specimen Comment: A courtesy copy of this report has been sent to Specimen Comment: [phone]. Specimen Comment: A duplicate report has been generated due to demographic updates. Performed at: [address], [place], [place] [id number] MD Ab Sheikh MD Phone: [phone]
== END 2018-12-17 18:02 | DRG 871 ==
LOC: ER 11:05 → ICU 13:14 → EROBS 13:14 → 3W 16:55 → ICU 20:25
PROVIDERS: Emergency Medicine; Pediatrics; ADMIT Internal Medicine Geriatric Medicine
DX: A41.1 Sepsis due to other specified staphylococcus (principal); G82.50 Quadriplegia, unspecified; J96.21 Acute and chronic respiratory failure with hypoxia; J96.22 Acute and chronic respiratory failure with hypercapnia; G92 Toxic encephalopathy; J18.1 Lobar pneumonia, unspecified organism; G12.21 Amyotrophic lateral sclerosis; I50.32 Chronic diastolic (congestive) heart failure; Z99.11 Dependence on respirator [ventilator] status; G31.9 Degenerative disease of nervous system, unspecified; F41.9 Anxiety disorder, unspecified; I11.0 Hypertensive heart disease with heart failure; E11.65 Type 2 diabetes mellitus with hyperglycemia; E87.8 Other disorders of electrolyte and fluid balance, not elsewhere classified; G90.4 Autonomic dysreflexia; Z16.24 Resistance to multiple antibiotics; E66.01 Morbid (severe) obesity due to excess calories; G90.8 Other disorders of autonomic nervous system; Y95 Nosocomial condition; D50.9 Iron deficiency anemia, unspecified; I95.9 Hypotension, unspecified; Z79.899 Other long term (current) drug therapy; Z87.440 Personal history of urinary (tract) infections; Z91.041 Radiographic dye allergy status; Z93.1 Gastrostomy status; Z93.0 Tracheostomy status; Z68.35 Body mass index [BMI] 35.0-35.9, adult; Z79.1 Long term (current) use of non-steroidal anti-inflammatories (NSAID)
CPT/HCPCS: 10078

== ENCOUNTER → 2018-12-30 | Outpatient (CLI) | payer OTHER ==
[~2018-12-30] MED LIST changes: +AKWA TEARS OIN3.5 GM OPHTHALMIC; +AMOXICILLIN 50500 MG PER TUBE; +ANTIFUNGAL TOP; +B12INJ IM; +CYANOCOBAL1000 MCG/1 IM; +FERROUS SU300 MG/5 M PER TUBE; +FLUSH FLUSH; +IPRAT-ALBUT 0.5-3 ML INH; +LEVAQUIN 750 M750 MG IV; +MAG-AL LIQUID30 ML PER TUBE; +MAPAP160 MG/51 PER TUBE; +MINOCIN50 MG PO; +NORCO 5-325 TA1 EACH PO; +NYSTATIN100000 UNI SW&SWALLOW; +ONDANSETRON HCL4 M1 IV PUSH; +VANC750 IV; +VENOFER50 MG/2.5 IV; +ZOSYN 3.3753.375 GM IV
[2018-12-30 10:39] VITALS: BP 122/79
== END | disposition home or self-care (01) ==
LOC: SPEC 07:02
DX: K94.23 Gastrostomy malfunction (principal); R13.19 Other dysphagia; I11.0 Hypertensive heart disease with heart failure; I50.9 Heart failure, unspecified; G82.50 Quadriplegia, unspecified; F41.9 Anxiety disorder, unspecified; K21.9 Gastro-esophageal reflux disease without esophagitis; F32.9 Major depressive disorder, single episode, unspecified; Z87.440 Personal history of urinary (tract) infections; Z98.890 Other specified postprocedural states; Z79.899 Other long term (current) drug therapy; Z91.041 Radiographic dye allergy status; Z88.8 Allergy status to other drugs, medicaments and biological substances; Z79.4 Long term (current) use of insulin

== ENCOUNTER 2019-01-04 20:58 | Inpatient (IN) | payer OTHER ==
[~2019-01-04] VITALS: Ht 170.2 cm; Wt 78.2 kg
[2019-01-04 20:59] VITALS: BP 156/90
[2019-01-04 21:29] LABS: HEMATOCRIT 27.3 % (37.0-47.0); HEMOGLOBIN 8.4 gm/dL (12.0-15.0); MCH 22.6 pg (26.0-34.0); MCHC 30.7 g/dL (28.0-37.0); MCV 73.5 fL (80.0-100.0); PLATELET COUNT 321 thou/uL (150-400); RBC 3.71 mil/uL (4.20-5.00); RDW 27.9 % (10.5-14.5); WBC 14.5 thou/uL (4.0-11.0)
[2019-01-04 21:36] LABS: CALCIUM 9.6 mg/dL (8.5-10.1); CREATININE 0.3 mg/dL (0.6-1.0); POTASSIUM 4.9 mmol/L (3.5-5.1)
[2019-01-04 21:40] LABS: ALBUMIN 1.8 g/dL (3.4-5.0); TOTAL BILIRUBIN 0.2 mg/dL (<0.1-1.0)
[2019-01-04 21:58] VITALS: BP 156/90
[2019-01-04 22:03] LABS: URINE BILIRUBIN NEGATIVE (Negative); URINE BLOOD 1+ (Negative); URINE CLARITY TURBID; URINE COLOR YELLOW; URINE GLUCOSE-RANDOM* NEGATIVE (Negative); URINE KETONES NEGATIVE (Negative); URINE LEUKOCYTES-REFLEX 3+ (Negative); URINE NITRITE-REFLEX NEGATIVE (Negative); URINE PROTEIN (DIPSTICK) TRACE (Negative); URINE SPECIFIC GRAVITY 1.015 (1.005-1.035); URINE UROBILINOGEN 0.2 E.U./dl (0.2-1.0)
[2019-01-04 22:10] LABS: SQUAMOUS 0-3 Few /LPF (0-3); URINE RBC >20 Many /HPF (0-2)
[2019-01-04 22:11] LABS: CASTS None Seen /LPF (None Seen); CRYSTALS None Seen /LPF (None Seen)
[2019-01-04 22:22] LABS: ABSOLUTE NEUTROPHILS 9.3 thou/uL (1.4-8.2)
[2019-01-04 22:24] LABS: ANISOCYTOSIS 3+; HYPOCHROMASIA 2+; MICROCYTES 1+; PLATELET ESTIMATE NORMAL; POLYCHROMASIA OCCASIONAL
--- NOTE | 2019-01-04 22:30 | NUR ---
SPOKE WITH DR.KO IVAN REGARDING OF PT. HE WOULD LIKE TO INITIATE SEPSIS PROTOCOL ON THIS PT.
--- NOTE | 2019-01-04 23:00 | NUR ---
Pt arrived ICU via cart, accompanied with ER staff and RT. She is being admit for Septic shock and PNA. BP Slightly low up on arrival. IVF bolus is in progress. She is on vent. Her eys are opened but unresponsive. Per report she is a vent dependent. Trach site with scant amount of blood notes on her dressing.Very coarse lung sound with auscultation. Copious thick yellowish sputum returned with suctioning. Assessment completed. Will obtain her hx from her old chart and start Sepsis protocol as order.
[2019-01-04 23:09] VITALS: BP 106/65
[2019-01-04 23:24] VITALS: BP 91/55
[2019-01-04 23:39] VITALS: BP 80/52
[2019-01-04 23:45] LABS: BE(vivo) 8.9 mmol/L (-2 to +3); HCO3 33.6 mmol/L (22.0-26.0); PCO2 48.4 mmHg (35.0-45.0); PO2 69.3 mmHg (80.0-100.0); sO2 94.5 % (92.0-98.0)
[2019-01-04 23:54] VITALS: BP 73/40
[2019-01-05] VITALS (46 sets, daily range): BP systolic 83–166; BP diastolic 44–98
[2019-01-05 00:41] LABS: INR 1.1; PROTIME 11.3 Seconds (9.3-11.4)
[2019-01-05 00:44] LABS: CALCIUM 9.6 mg/dL (8.5-10.1); CREATININE 0.2 mg/dL (0.6-1.0)
[2019-01-05 00:45] LABS: POTASSIUM 5.2 mmol/L (3.5-5.1)
[2019-01-05 00:47] LABS: MAGNESIUM 2.2 mg/dL (1.8-2.4); PHOSPHORUS 4.3 mg/dL (2.5-4.9)
--- NOTE | 2019-01-05 02:00 | NUR ---
Pt notes to have vagal response during Trach care by RT. HR went down as low as 30's, cafeteria monitor did show SB. BP was stable when I assessed. It happened less than 15 sec during event. HR back to 80's to 90's at this time. Continue to monitor any changes.
[2019-01-05 02:07] LABS: CALCIUM 8.5 mg/dL (8.5-10.1); CREATININE 0.2 mg/dL (0.6-1.0); POTASSIUM 3.4 mmol/L (3.5-5.1)
[2019-01-05 05:50] LABS: HEMATOCRIT 22.3 % (37.0-47.0); MCHC 31.4 g/dL (28.0-37.0); MCV 73.3 fL (80.0-100.0); RBC 3.04 mil/uL (4.20-5.00); RDW 27.6 % (10.5-14.5); WBC 12.5 thou/uL (4.0-11.0)
[2019-01-05 06:00] LABS: CALCIUM 8.5 mg/dL (8.5-10.1); CREATININE 0.2 mg/dL (0.6-1.0); POTASSIUM 3.2 mmol/L (3.5-5.1)
--- NOTE | 2019-01-05 07:00 | NUR ---
No change of condtions. Her MAPs > 65 mmHg or better. Continue sepsis protocol .
--- NOTE | 2019-01-05 10:58 | EKG ---
[address] [address] ELECTROCARDIOGRAM REPORT Name: BRIGETTE RIVAS Room #: 244-P ADM IN M.R.#: [id number] Admission: 01/04/19 Attend Phys: Rosa Roblero Discharge: Date of : 56 Report #: [id number] THIS REPORT FOR: //name// [facility] ED Test Date: 2019-01-04 Test Time: 21:13:59 Pat Name: BRIGETTE RIVAS Department: Room: 244 Gender: F Log Stacker Operator: : [id number] Requested By: Raciel Sanders Order Number: [id number] MD: Ricardo Andres Measurements Intervals [place] Rate: 114 P: 92 LA: 142 QRS: 94 QRSD: 81 T: 11 QT: 298 QTc: 411 Interpretive Statements Sinus tachycardia Right atrial enlargement Right axis deviation Nonspecific ST segment abnormalities Compared to ECG 12/13/2018 11:15:32 Right-axis deviation now present ST (T wave) deviation now present T-wave abnormality no longer present Electronically Signed On 01-05-2019 10:58:14 SECTION GANG WORKER by Ricardo Andres [email or web address] <ELECTRONICALLY SIGNED> By: Ricardo Andres MD 01/05/19 1058 12 12 Ricardo Andres MD /EPI
[2019-01-05 14:17] LABS: BE(vivo) 3.4 mmol/L (-2 to +3); HCO3 28.4 mmol/L (22.0-26.0); PCO2 45.9 mmHg (35.0-45.0); PO2 78.4 mmHg (80.0-100.0); sO2 95.6 % (92.0-98.0)
[2019-01-05 15:14] LABS: HCO3 29.3 mmol/L (22.0-26.0); PCO2 54.5 mmHg (35.0-45.0); PO2 379.4 mmHg (80.0-100.0); pH 7.348 (7.360-7.450); sO2 99.8 % (92.0-98.0)
--- NOTE | 2019-01-05 19:49 | NUR ---
ASSESSMENTS DOCUMENTED. PT SWITCHED TO D5 1/2 NS FROM NS THIS AM. NO NEED TO INITIATE PRESSORS. B/P IMPROVED. VSS. VENT DEPENDENT. CENTRAL LINE REPLACED THIS AFTERNOON BY IV NURSE. AFTER LINE PLACEMENT PT HAD EPISODE OF BRADYCARDIA AND DESATING. VENT ALARMING, RN AND RT IN PT ROOM. FOUND PT TO HAVE LEAK IN TRACH CUFF. NOTIFIED DR. CISNEROS. CAME TO BEDSIDE AND REPLACED TRACH TO #8 XTRA MARILY GHOTRA. FAMILY UPDATED. CRAWFORD PATENT. SUCTIONED FREQUENTLY D/T AMOUNT OF SECRETIONS. GI SAW PATIENT FOR POTENTIAL PEG TUBE MALFUNCTION. PEG IS NOT DRAINING AROUND SITE - FLUSHES WITH NO RESISTANCE. FAMILY AT BEDSIDE THIS AFTERNOON.
--- NOTE | 2019-01-05 20:11 | NUR ---
VASCULAR ACCESS CONSULTED TO PLACE A NEW CL ON THIS PT SHE WAS READMITTED WITH A CL THAT WAS PLACED HERE, SENT WITH HER TO [facility], AND REMAINED WHEN READMITTED. BLD CX DRAWN PRIOR TO NEW LINE PLACEMENT SEE INSERTION NOTE FOR DETAILS
[2019-01-06] VITALS (21 sets, daily range): BP systolic 94–156; BP diastolic 59–86
--- NOTE | 2019-01-06 03:18 | NUR ---
ASSUMED CARE OF PATIENT AT 1900. VSS, AFEBRILE. NO S/S OF DISTRESS. TURNED Q2. DAUGHTER CALLED, UPDATED POC. DAUGHTER STATES SHE WANTS PATIENT TO STAY HERE LONG POSSIBLE SO THAT PATIENT DOES NOT HAVE TO GO BACK TO [facility]. BATH GIVEN, TOLERATES WELL. DOES NOT TRACK. PROGRESSING EXPECTING TOWARDS POC GOALS.
[2019-01-06 04:49] LABS: HEMOGLOBIN 7.6 gm/dL (12.0-15.0); MCH 22.8 pg (26.0-34.0); MCHC 31.5 g/dL (28.0-37.0); MCV 72.3 fL (80.0-100.0); RBC 3.32 mil/uL (4.20-5.00); RDW 27.7 % (10.5-14.5); WBC 8.9 thou/uL (4.0-11.0)
[2019-01-06 04:56] LABS: CALCIUM 8.7 mg/dL (8.5-10.1); CREATININE 0.2 mg/dL (0.6-1.0)
[2019-01-06 04:59] LABS: POTASSIUM 2.9 mmol/L (3.5-5.1)
[2019-01-06 05:20] LABS: BE(vivo) 2.2 mmol/L (-2 to +3); HCO3 28.8 mmol/L (22.0-26.0); PCO2 57.1 mmHg (35.0-45.0); sO2 95.6 % (92.0-98.0)
[2019-01-06 05:21] LABS: pH 7.321 (7.360-7.450)
--- NOTE | 2019-01-06 10:00 | NUR ---
Nutrition: REC resume tube feeds of Glucerna 1.2, Rec goal rate of 60 mL/hr to meet 90-110% of needs.
--- NOTE | 2019-01-06 10:00 | NUR ---
Nutrition: REC resume tube feeds of Glucerna 1.2. Suggest goal rate of 60 mL/hr to meet 90-110% of needs.
--- NOTE | 2019-01-06 11:56 | NUR ---
WOUND CONSULT; LEFT INNER THIGH BLISTERED AREA. UNKOWN ETIOLOGY. NO S/S OF INFECTION SEEN. RECOMMENDATION ; APPLY OPTIFOAM CHANGE DAILY. DISCUSSED WITH RN
--- NOTE | 2019-01-06 12:19 | H ---
[facility] [place] [address] [place] [address] HISTORY AND PHYSICAL Name: BRIGETTE RIVAS Room #: 244-P ADM IN M.R.#: [id number] Admission: 01/04/19 Attend Phys: Rosa Roblero Discharge: Date of : 56 Report #: [id number] THIS REPORT FOR: //name// CC: Servando Duncan DATE OF SERVICE: 01/05/2019 CHIEF COMPLAINT: Low lung volumes on the ventilator. HISTORY OF PRESENT ILLNESS: The patient is a 58-year-old female, transferred back to the ER from [facility] for respiratory evaluation of low lung volumes. She has a long well-documented history of a neurologic condition diagnosed as ALS from [facility] approximately a year and a half ago and has been chronically trached and ventilated for now approaching two years. She has had multiple hospitalizations at various hospitals over the community with no treatment option or improvement in her respiratory status. This includes admissions to [facility] and [facility]. She has had multiple hospitalizations here related to pulmonary issues, namely difficulty ventilating, tracheostomy issues and recurrent pneumonias. She was just hospitalized here for healthcare-related pneumonia and finished a course of antibiotics and was at the LTAC facility. Yesterday evening, the respiratory therapist called stating that they were experiencing low lung volumes on the ventilator and were concerned about a trach cuff leak. Unfortunately, they did not feel comfortable changing the tracheostomy tube. At that point, she was directed to the ER. My understanding is the trach was changed in the ER and overnight RT tried suctioning at times. This has caused high pressure volumes and a vagal episode with bradycardia and hypotension. Currently for the last several hours, RT reported that the ventilator volumes have been relatively stable. 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 Chronic tracheostomy tube, chronic ventilator for approaching two years. Anemia of chronic disease. She has had multiple admissions for pneumonia, previous C. difficile colitis in 2017. She apparently has had a cervical spine fusion surgery. PAST SURGICAL HISTORY: Unknown. FAMILY HISTORY: Noncontributory. SOCIAL HISTORY: No known chronic alcohol or tobacco use. ALLERGIES: IODINE. MEDICATIONS: Albuterol, NovoLog, Zosyn. [address] [address] HISTORY AND PHYSICAL Name: BRIGETTE RIVAS Room #: [facility] IN M.R.#: [id number] Admission: 01/04/19 Attend Phys: Rosa Roblero Discharge: Date of : 56 Report #: [id number] REVIEW OF SYSTEMS: She is unable to give review. OBJECTIVE: VITAL SIGNS: Temperature 37, pulse 77, respirations 20, blood pressure 120/68, O2 sat 99% on the ventilator. GENERAL: She is not responsive on the ventilator. HEAD AND NECK: Unremarkable. LUNGS: Clear anteriorly. HEART: Regular. ABDOMEN: Soft, normoactive bowel sounds. EXTREMITIES: 1+ nonpitting edema. LABORATORY AND X-RAY DATA: Reviewed. ASSESSMENT: 1. Healthcare-associated pneumonia. 2. Chronic hypoxic hypercapnic respiratory failure. 3. Amyotrophic lateral sclerosis. 4. Ventilator dependence. 5. Tracheostomy dependence. 6. Chronic microcytic anemia. 7. Hypokalemia. 8. Severe protein-calorie malnutrition. PLAN: I will have the Pulmonary Service assess her at this point to see if a repeat therapeutic bronchoscopy is indicated. We will continue her antibiotics. 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 She has not been on Lovenox DVT prophylaxis due to suspected GI blood loss given the microcytic anemia. SCDs will be used. Overall, this is a terminal neurologic condition. There are no plans or hope of weaning from the ventilator. She has had continued decline in her neurologic function over the last year. Our service has had multiple conversations with her family in regards to code status and prognosis, and they have continued to request a full code and active medical treatment. <ELECTRONICALLY SIGNED> By: Marv Sheridan MD 01/06/19 1219 0853 0958 Marv Sheridan MD /nt
--- NOTE | 2019-01-06 13:34 | NUR ---
NOTIFIED THIS AM OF THE PATIENTS LEFT IJ CVC WAS MALPOSITIONED. ON ASSESSMENT LINE HAD FLIPPED UP TOWARD THE RIGHT JUGULAR. ATTEMPTS AT POWERFLUSHING TO REPOSITION WERE UNSUCCESSFUL. DISCUSSED REPLACEMENT WITH THE PATIENTS NURSE AND SHE AGREED DR. SHELTON WANTS IT REPLACED. AIR/OCEAN EXPORT CLERK OBTAINED TELEPHONE CONSENT FROM THE FAMILY. THE LEFT IJ CVC WAS REPLACED BY OTHER THE WIRE USING HOSPITAL POLICY ON 2ND ATTEMPT. THE 2ND STAT CHEST XRAY IS SHOWING LINE NOW IN THE MID SVC AND IN GOOD POSITION FOR USE
--- NOTE | 2019-01-06 18:42 | HC ---
[facility] [place] [address] CONSULTATION Name: BRIGETTE RIVAS Room #: 244-P ADM IN M.R.#: [id number] Admission: 01/04/19 Attend Phys: Rosa Roblero Discharge: Date of : 56 Report #: [id number] THIS REPORT FOR: //name// CC: Servando Duncan REFERRAL PHYSICIAN: Andrea Duncan M.D. REASON FOR REFERRAL: Acute on chronic respiratory failure. HISTORY OF PRESENT ILLNESS: The patient is a 58-year-old -Spanish female brought to the Emergency Room for a tracheostomy tube change. The patient was admitted for ongoing respiratory failure. A Pulmonary consultation was requested. Tracheostomy tube was exchanged by Dr. Raciel Sanders at the ED Department. Since admission, the patient has had problem with high peak airway pressures. It is apparent that the cough may be nonfunctional with suspected cuff leak. In short summary, the patient has a complicated medical history. Her neurologic problems started around 2017 when she was undergoing a surgical procedure for a pinched nerve. She then developed a neuromuscular weakness. She was felt to have neurodegenerative disorder. She has been seen by other facilities including [facility]. Following extensive workup, multiple scleroses along with ALS was ruled out. Over time, weakness progressed where she developed respiratory failure requiring chronic mechanical ventilation with a tracheostomy. She has been sent to a long-term care facility. She was just hospitalized a few months ago at [facility]. PAST MEDICAL HISTORY: As mentioned above, progressive functional quadriplegia of unknown etiology, chronic tracheostomy, ventilator dependent, dysphagia, status post PEG, diabetes mellitus, anxiety disorder, hypertension and progressive debility and weakness as mentioned above. ALLERGIES: To CONTRAST DYE, reaction unspecified. MEDICATIONS: Lists are reviewed, in the MAR. FAMILY HISTORY: Noncontributory. SOCIAL HISTORY: She normally resides at [facility]. Otherwise, no past history of tobacco or alcohol use. REVIEW OF SYSTEMS: Deferred. REVIEW OF SYSTEMS: Deferred given the above clinical status that she is nonverbal. [facility] [address] [place] [address] CONSULTATION Name: BRIGETTE RIVAS Room #: 244-P [facility] IN M.R.#: [id number] Admission: 01/04/19 Attend Phys: Rosa Roblero Discharge: Date of : 56 Report #: [id number] PHYSICAL EXAMINATION: GENERAL: She is sedated. VITAL SIGNS: Temperature is 98.6 degrees Fahrenheit, pulse is 95, respiratory rate is 18, blood pressure 120/70 mmHg and saturation is 98%. HEENT: Normocephalic and atraumatic. NECK: Status post tracheostomy. CHEST: Breath sounds are fair. Coarse breath sounds bilaterally. CARDIOVASCULAR: Heart sounds are distant. ABDOMEN: Soft. No masses, status post PEG tube placement. GENITOURINARY: Deferred. RECTAL: Deferred. EXTREMITIES: No cyanosis or clubbing, less than 1+ bilateral edema. NEUROLOGICAL: Notable for progressive muscle weakness, some evidence of contractures. She is presently sedated, nonresponsive. RADIOLOGICAL DATA: Portable chest x-ray shows chronic dense left lower lobe infiltrate, cardiomegaly, mild bilateral interstitial infiltrates, tracheostomy in the midline, though the technique is poor as the film is rotated. LABORATORY DATA: Sodium 147, potassium 3.2, chloride 110, CO2 of 29, BUN is 11 and creatinine 0.2. Liver enzymes are grossly unremarkable. WBC 12,500, hemoglobin 7.0 and platelets are unremarkable. No evidence of bandemia. Arterial blood gas revealed pH 7.4, pCO2 of 45 and pO2 78 on 40% FiO2. IMPRESSION: 1. Acute respiratory distress. It appears that the patient is not ventilating adequately with the trach. This was just changed yesterday. The trach balloon appears to be nonfunctional. The patient is in need of a new tracheostomy tube. 2. Ovxoc-cb-zjjcqfm hypoxic respiratory failure due to suspect recurrent pneumonias. A chest x-ray again shows chronic dense left lower lobe infiltrates, mild bilateral interstitial infiltrates persist. 3. Progressive weakness leading to a functional quadriplegia, appears to be worse since last admission, we will defer to primary medicine team. 4. Progressive weakness and debility as mentioned above. 5. Anemia due to chronic disease. 6. Malnutrition. RECOMMENDATIONS: The patient will need a new trach. Plan for tracheostomy tube changes as soon as available. Continue mechanical ventilation as tolerated. Reviewing the ventilator parameters showed the patient's peak airway pressure was in excess of 48 cm of water pressure. We will need to try to keep peak airway pressure below 40 to avoid barotrauma. Broad-spectrum antibiotic has been started. DVT and GI prophylaxis will be addressed. Overall, prognosis [address] [address] CONSULTATION Name: BRIGETTE RIVAS Room #: 244-P ADM IN M.R.#: [id number] Admission: 01/04/19 Attend Phys: Rosa Roblero Discharge: Date of : 56 Report #: [id number] felt to be guarded to poor given progressive neuromuscular weakness of undetermined etiology. <ELECTRONICALLY SIGNED> By: Abdon Crowley MD 01/06/19 1842 [id number] [id number] Abdon Crowley MD /nt
--- NOTE | 2019-01-06 18:53 | NUR ---
Assumed care of patient at 0700. Patient does have some eye opening, but no other purposeful movement. Trach revision that was done yesterday seems to be working much better, no gurgling or air heard around. Has copious mucous oral secretions and moderated from in-line trach suctioning. Down to CT chest as ordered, also completed KUB as ordered. Ok'd to start tube feeds to goal rate of 60. Daughter updated via phone and at bedside in the evening. Repositioned patient to family's wishes with pillows and towel rolls. Continue to monitor.
[2019-01-07] VITALS (23 sets, daily range): BP systolic 103–167; BP diastolic 64–92
[2019-01-07 05:10] LABS: CALCIUM 9.2 mg/dL (8.5-10.1); CREATININE 0.3 mg/dL (0.6-1.0); MAGNESIUM 1.8 mg/dL (1.8-2.4)
[2019-01-07 05:12] LABS: HEMATOCRIT 27.6 % (37.0-47.0); HEMOGLOBIN 8.4 gm/dL (12.0-15.0); MCH 22.5 pg (26.0-34.0); MCHC 30.6 g/dL (28.0-37.0); MCV 73.5 fL (80.0-100.0); POTASSIUM 2.4 mmol/L (3.5-5.1); RDW 26.6 % (10.5-14.5); WBC 11.2 thou/uL (4.0-11.0)
[2019-01-07 05:17] LABS: RBC 3.76 mil/uL (4.20-5.00)
--- NOTE | 2019-01-07 06:01 | NUR ---
ASSUMED CARE OF PT AT 1900. VSS, NO DISTRESS NOTED. ASSESSMENTS PER DOCUMENTATION. IVF'S INFUSING WITHOUT DIFFICULTY. PT OPENS EYES, DOES NOT MOVE EXTREMITIES OR COMMUNICATE, QUADRIPLEGIC. LARGE AMOUNT OF SECRETIONS IN TRACH - THIN GREEN/YELLOW AND CLR ORAL SECRETIONS. PT TOLERATING TF SLOWLY, INCREASED TO A RATE OF 40ML/HR OVERNIGHT. ADEQUATE UOP > 2L OUTPUT. DTR GIVEN UPDATES THROUGHOUT THE NIGHT. CRITICAL POTASSIUM LEVEL CALLED TO ELECTRIC SCOOP OPERATOR PHYSICIAN DR. LANCASTER - ORDERS RECEIVED, 40 KCL X2 DOSES.
--- NOTE | 2019-01-07 16:22 | NUR ---
ASSESSMENT-PT CAME FROM [facility] AND WILL RETURN THERE ONCE MEDICALLY STABLE. PT HAS TRACH AND PEG TUBE. PT NEEDS ASSIST WITH ALL CARES. NURSING UPDATED DTR CRYSTAL TO ANTICIPATE DC BACK TO [facility] SOON. UPDATE PROVIDED TO [facility]. FOLLOWING TO ASSIST WITH DC PLANNING.
--- NOTE | 2019-01-07 17:51 | NUR ---
ASSUMED CARE AT SHIFT CHANGE. ASSESSMENTS PER CHART. PT REMAINED STABLE THROUGHOUT THE SHIFT. K REPLEATED. PT VSS. NO LEAKAGE FROM PEG TUBE TODAY, UP TO GOAL RATE OF 60ML/HR ON TF. NO RESIDUALS THUS FAR. PT HAD X 2 EPISODES OF LIQUID DIARRHEA, FECAL TUBE PLACED TO PROTECT SKIN. CCT ORDERS RECEIVED THIS AM, AWAITING BED. WILL CONT TO MONITOR AND FOLLOW POC.
[2019-01-08] VITALS (10 sets, daily range): BP systolic 87–143; BP diastolic 46–81
[2019-01-08 06:22] LABS: HEMATOCRIT 26.6 % (37.0-47.0); HEMOGLOBIN 8.2 gm/dL (12.0-15.0); MCH 22.7 pg (26.0-34.0); MCHC 30.9 g/dL (28.0-37.0); MCV 73.6 fL (80.0-100.0); RBC 3.61 mil/uL (4.20-5.00); RDW 27.2 % (10.5-14.5)
[2019-01-08 06:24] LABS: WBC 26.4 thou/uL (4.0-11.0)
[2019-01-08 06:28] LABS: CALCIUM 9.8 mg/dL (8.5-10.1); CREATININE 0.3 mg/dL (0.6-1.0); POTASSIUM 3.7 mmol/L (3.5-5.1)
--- NOTE | 2019-01-08 07:19 | NUR ---
ASSUMED CARE OF PT AT 1900. ASSESSMENTS PER DOCUMENTATION. VSS, NO DISTRESS NOTED. HR HAS BEEN TACHY THROUGHOUT THE NIGHT, 115-130'S. VENT SETTINGS UNCHANGED, LARGE AMOUNT OF SECRETIONS ORAL AND IN-LINE SUCTIONING. FMS IN PLACE W/ MINIMAL OUTPUT, X1 DOSE OF PRN LOPERAMIDE GIVEN. PT TOLERATING TF AT GOAL PER PEG, MINIMAL RESIDUALS. ADEQUATE UOP > 1L. ONE OPEN ARE ON INNER LEFT THIGH - POPPED BLISTER W/ OPTIFOAM OVER IT. POTASSIUM WNL THIS AM, SIGNIFICANT INCREASE IN WBC THIS AM. PT DOES HAVE TRANSFER ORDERS TO , WAITING ON BED AVAILABILITY. UPDATED DTR X2 OVERNIGHT.
--- NOTE | 2019-01-08 15:47 | NUR ---
GLORIA reviewed chart. Pt was transferred to 3W from ICU and is progressing towards goals for discharge. Discharge back to [facility] is anticipated in 1-2 days pending insurance authorization. GLORIA spoke with pt's dtr/DPOA, Brittanie, via phone to provide update and notify of anticipated discharge. Brittanie is aware and agreeable with discharge plan. Pt's DPOA document printed and placed on pt's chart by GLORIA. GLORIA discussed case with [facility] liaison, who confirms they are able to accept pt to the LTAC pending insurance authorization. GLORIA is following to assist as needed with discharge planning.
--- NOTE | 2019-01-08 16:27 | HC ---
[facility] [place] [address] CONSULTATION Name: BRIGETTE RIVAS Room #: 361-P ADM IN M.R.#: [id number] Admission: 01/04/19 Attend Phys: Rosa Roblero Discharge: Date of : 56 Report #: [id number] THIS REPORT FOR: //name// CC: Servando Duncan DATE OF SERVICE: 01/07/2019 TYPE OF REPORT: Infectious disease consultation. REASON FOR CONSULTATION: Evaluate gram-negative pneumonia. 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 This was exchanged over a wire by Interventional Radiology on 12/30/2018. Subsequent to this, she was doing better at [facility]. On the day of admission on 01/04/2019, there was difficulty ventilating the patient. She brought into the Emergency Room where a tracheostomy tube was exchanged. Subsequently, she was having high peak airway pressures. She required bronchoscopy by Dr. Abdon Crowley who then exchanged her tracheostomy again. Subsequently, she remains on the ventilator. Sputum culture now growing gram-negative bacilli. Previously, she had Proteus and a multidrug resistant Acinetobacter. She has been placed on vancomycin, Zosyn, and minocycline. She has remained afebrile. She has a kekumren-na-kmksx amount of tracheal secretions. Remained stable on the ventilator. She has had loose stools. She is tolerating her tube feeds with minimal residual. She had reasonable urine output. REVIEW OF SYSTEMS: The patient was unable to give any further details. She does have a left IJ central venous catheter. Had tracheostomy and on the ventilator. Her PEG tube and a rectal tube in place. Also, has an indwelling Funez catheter. A 10-point review of systems otherwise unable to obtain. PAST MEDICAL HISTORY: Quadriplegia from neurologic disease, suspected ALS, respiratory failure, encephalopathy, dysphagia, PEG tube, diabetes, anxiety disorder and hypertension. ALLERGIES: CONTRAST DYE. MEDICATIONS: As noted on her MAR. FAMILY HISTORY: Noncontributory. SOCIAL HISTORY: Has been residing at acute long-term care and shelter units. Nonsmoker. No significant alcohol intake. PHYSICAL EXAMINATION: [facility] [address] [place] [address] CONSULTATION Name: BRIGETTE RIVAS Room #: 361[facility] IN M.R.#: [id number] Admission: 01/04/19 Attend Phys: Rosa Roblero Discharge: Date of : 56 Report #: [id number] VITAL SIGNS: She is afebrile and hemodynamically stable. GENERAL: She was awake but unable to communicate. Mild anasarca. HEENT: Eyes with mild conjunctivitis. No scleral icterus. Mouth without mucositis. Tracheostomy without drainage. NECK: Supple. No palpable adenopathy. SKIN: Without rash or decubitus. LUNGS: Coarse breath sounds bilaterally with consolidation in the left mid posterior chest. HEART: Regular, without murmur, gallop or rub. ABDOMEN: Soft with no palpable masses or hepatosplenomegaly. PEG site was unremarkable. GENITOURINARY: External genitalia unremarkable with indwelling Funez catheter. RECTAL: Not performed. She had a rectal tube in place with liquid stool evident. EXTREMITIES: No skin breakdown. Quadriparetic. LABORATORY STUDIES: Sodium 144, potassium 4.0, bicarbonate 31 and creatinine 0.3. Liver function tests normal. Albumin of 1.8. INR 1.1. Hemoglobin 8.4; white count 11.2 and platelet count 331,000. Differential unremarkable. Vancomycin trough 18. Urinalysis, moderate wbc's, many rbc's, moderate bacteria. ABGs yesterday on FiO2 of 40% showed a pO2 of 57, pCO2 86 and pH 7.3. Cultures of blood are negative so far. Urine culture, yeast. Sputum culture, gram-negative bacilli. RADIOLOGICAL DATA: Chest x-ray, right lung interstitial infiltrates and extensive left lung consolidation. IMPRESSION: A 58-year old with stage neurologic disorder suspecting ALS with respiratory failure and chronic pneumonitis. She has issues with secretion clearance. Currently with gram-negative organisms growing from her sputum culture. She has chronic indwelling Funez catheter. I suspect colonization of the urinary tract with yeast. The patient has previous multidrug resistant gram negatives identified. RECOMMENDATIONS: We would recommend continuing IV antibiotic therapy with Zosyn and minocycline. Add Imodium for her loose stools. Await final culture results to adjust her antibiotics. Continue with isolation procedures. Continue with current ventilatory procedures to maintain pulmonary clearance. <ELECTRONICALLY SIGNED> By: Martin Duncan MD 01/08/19 1627 [id number] 0250 Martin Duncan MD /nt
--- NOTE | 2019-01-08 18:22 | NUR ---
PATIENT TRANSFER FROM ICU AT 1030. ON VENT A/C TOLERATED WELL. NEEDS FREQUENTLY SUCTION. VSS, AFEBRILE. TOLERATED TF. DAUGHTER GIVEN SPECIAL INSTRUCTION HOW TO POSITON PATIENT. FECAL TUBE HAS LIQUID STOOL. VERY HARD TO DETERMINE IF PATIENT AWAKE OR NOT. SLOWLY TOWARDS POC GOALS.
[2019-01-09 04:28] VITALS: BP 115/60
[2019-01-09 05:29] LABS: HEMATOCRIT 22.3 % (37.0-47.0); MCHC 31.3 g/dL (28.0-37.0); MCV 73.5 fL (80.0-100.0); PLATELET COUNT 273 thou/uL (150-400); RBC 3.03 mil/uL (4.20-5.00); RDW 27.9 % (10.5-14.5); WBC 15.9 thou/uL (4.0-11.0)
[2019-01-09 05:31] LABS: CALCIUM 9.6 mg/dL (8.5-10.1); CREATININE 0.3 mg/dL (0.6-1.0); POTASSIUM 3.6 mmol/L (3.5-5.1)
--- NOTE | 2019-01-09 05:38 | NUR ---
PT DAUGHTER CALLED 3X DURING SHIFT. DAUGHTER IS WORRIED THIS IS BEING CAUSED BY PARASITIC INFECTION. ORDERED LOW LOSS AIR PUMP DUE TO MAURI SCORE AND IMMOBILITY OF PT. PT VSS WERE STABLE. FOLLOWING POC WITH IVPB ANTIBIOTICS. HOURLY ROUNDING. GAVE PT SEMI BED BATH AND CHANGED ALL LINEN.
[2019-01-09 06:28] LABS: ABSOLUTE NEUTROPHILS 13.8 thou/uL (1.4-8.2)
[2019-01-09 06:29] LABS: ANISOCYTOSIS 3+; MICROCYTES 1+; TARGET CELLS 1+
[2019-01-09 06:30] LABS: HYPOCHROMASIA 1+; PLATELET ESTIMATE NORMAL; POLYCHROMASIA 1+
[2019-01-09 07:54] VITALS: BP 130/67
[2019-01-09 12:08] VITALS: BP 103/58
--- NOTE | 2019-01-09 14:59 | NUR ---
GLORIA reviewed chart and spoke with nursing and attending physician. GLORIA discussed case with [facility] liaison. Priyanka does not have insurance authorization at this time. Pt will need ambulance transportation. Will need chart copy. GLORIA is following to assist as needed with discharge planning. [facility]-- [facility]--
[2019-01-09 16:05] VITALS: BP 134/69
--- NOTE | 2019-01-09 18:51 | NUR ---
PATIENT NOT PROGRESSING TOWARDS GOALS. SHE DOES NOT TRACK AT ALL. KEPT CLEAN AND DRY. FLUSHED PEG TUBE EASILY. WILL CONT WITH PLAN OF CARE.
[2019-01-09 20:00] VITALS: BP 127/72
[2019-01-10 04:31] VITALS: BP 119/69
[2019-01-10 06:33] LABS: HEMATOCRIT 23.7 % (37.0-47.0); HEMOGLOBIN 7.3 gm/dL (12.0-15.0); MCH 22.9 pg (26.0-34.0); MCHC 30.9 g/dL (28.0-37.0); RBC 3.2 mil/uL (4.20-5.00); RDW 27.9 % (10.5-14.5)
[2019-01-10 06:52] LABS: CALCIUM 9.7 mg/dL (8.5-10.1); CREATININE 0.3 mg/dL (0.6-1.0); POTASSIUM 3.4 mmol/L (3.5-5.1)
[2019-01-10 06:53] VITALS: BP 158/78
--- NOTE | 2019-01-10 07:52 | NUR ---
No change in neuro status , nonresponsive with eyes open and did not follow command. Repositioned q 2 hrs. Afebrile.Cont. on isolation. Maintaining O2 sat in the low to mid 90's on current vent settings at 40% FIO2. Suctioned prn. SR-ST per tele. Tolerating tube feeding well with no gastric residual.Water flushes given q 4hrs per order. Bed alarm on for safety. SR-ST per tele. SCD's on. Daughter refused to have eye ointment given to pt. stating pt. refused and does not like it. Also requesting for parasitic infection test when doctor do rounds today. Day RN informed. Dressing on left thigh changed. Fecal tube in place and roland had large amount of urine.
--- NOTE | 2019-01-10 10:12 | NUR ---
GLORIA reviewed chart and spoke with nursing and attending physician. GLORIA notified by [facility] liaison that insurance has authorized admission to [facility]. Awaiting clearance from ID at this time. Chart copy ordered. Pt will need ambulance transportation. GLORIA is following to assist as needed with discharge planning.
[2019-01-10] MEDS ORDERED: KLOR-CON20 ME1 PER TUBE (11:07)
[2019-01-10] MEDS ORDERED: FIRVANQ50 MG/1 ML PO (11:07)
[2019-01-10] MEDS ORDERED: LOPERAMIDE1 MG/5 M1 PER TUBE (11:07)
[2019-01-10] MEDS ORDERED: PEPCID20 MG PER TUBE (11:08)
[2019-01-10] MEDS ORDERED: FORTAZ2 G1 IV (11:10)
[2019-01-10] MEDS ORDERED: TOBRAMYCIN40 MG/1 ML IV (11:15)
[2019-01-10 11:36] VITALS: BP 128/70
--- NOTE | 2019-01-10 12:12 | NUR ---
DISCHARGE PLANNING. DISCHARGE ORDERS RECEIVED. PATIENT DISCHARGING BACK TO [facility]. CHART COPIED PER CERTIFIED SURGICAL ASSISTANT. ORDERS FAXED TO [facility]IAISON, VERIFIED RECEIVED. [facility] TO TRANSPORT PATIENT. CALL PLACED TO DAUGHTER MELONY, VOICE MAIL LEFT TO FACILITATE TIME OF TRANSPORT, DAUGHTER WOULD LIKE TO BE PRESENT AT DISCHARGE. WILL FACILITATE [facility] AT THAT TIME. UNIT CM/SW AWARE.
[2019-01-10 15:36] VITALS: BP 164/71
--- NOTE | 2019-01-10 17:57 | NUR ---
ASSUMED PATIENT CARE AT 0700. UNRESPENSIVE. TOLERATED ON VENT. SUCTION NEEDS AND ORAL CARE. FECAL TUBE HAS LIQUID STOOL. Q2H TURN. VSS, AFEBRILE. PROGRESSING TOWARDS POC GOALS.
[2019-01-10 20:35] VITALS: BP 136/75
[2019-01-11 04:00] VITALS: BP 155/57
[2019-01-11 06:22] LABS: CALCIUM 10.3 mg/dL (8.5-10.1); CREATININE 0.3 mg/dL (0.6-1.0); POTASSIUM 3.8 mmol/L (3.5-5.1)
--- NOTE | 2019-01-11 07:44 | NUR ---
patient is non responsive. patient is q2turn. patient is pending discharge today. patient is on peg tube 60ml. patient has a roland. patient has a fecal management system. patient patient recived a part bath today. patient is on vent ac 20 fio2 40% peep 5 and rate 20. patient requires lots of suction. patient had a episode of asytole providers are aware patient does asytole and kd often with suction and repositioning. patient is resting comfortabley in bed. comfortm.
[2019-01-11 07:53] VITALS: BP 137/75
[2019-01-11 11:13] VITALS: BP 136/72
== END 2019-01-11 19:11 | DRG 207 ==
LOC: ER 20:58 → EROBS 21:41 → 3W 21:41 → ICU 21:41 → 3W 01-08 10:18
PROVIDERS: Emergency Medicine; Internal Medicine Geriatric Medicine; Internal Medicine Pulmonary Disease; Specialist; ADMIT Internal Medicine
DX: J18.9 Pneumonia, unspecified organism (principal); J96.21 Acute and chronic respiratory failure with hypoxia; G82.50 Quadriplegia, unspecified; E43 Unspecified severe protein-calorie malnutrition; J96.22 Acute and chronic respiratory failure with hypercapnia; G12.21 Amyotrophic lateral sclerosis; G93.40 Encephalopathy, unspecified; Z99.11 Dependence on respirator [ventilator] status; J22 Unspecified acute lower respiratory infection; B96.5 Pseudomonas (aeruginosa) (mallei) (pseudomallei) as the cause of diseases classified elsewhere; Z16.24 Resistance to multiple antibiotics; I11.0 Hypertensive heart disease with heart failure; F41.9 Anxiety disorder, unspecified; I50.9 Heart failure, unspecified; R29.90 Unspecified symptoms and signs involving the nervous system; Y95 Nosocomial condition; F32.9 Major depressive disorder, single episode, unspecified; K21.9 Gastro-esophageal reflux disease without esophagitis; E87.6 Hypokalemia; E11.9 Type 2 diabetes mellitus without complications; D63.8 Anemia in other chronic diseases classified elsewhere; Z68.27 Body mass index [BMI] 27.0-27.9, adult; Z91.041 Radiographic dye allergy status; Z93.1 Gastrostomy status; Z79.899 Other long term (current) drug therapy
CPT/HCPCS: 10078; 10879

== ENCOUNTER 2019-02-20 10:16 | Emergency (ER) | payer OTHER ==
[~2019-02-20] VITALS: Ht 167.6 cm; Wt 86.2 kg
[~2019-02-20 10:16] MED LIST changes: +FIRVANQ50 MG/1 ML PO; +FORTAZ2 G1 IV; +KLOR-CON20 ME1 PER TUBE; +LOPERAMIDE1 MG/5 M1 PER TUBE; +TOBRAMYCIN40 MG/1 ML IV
[2019-02-20 10:17] VITALS: BP 62/34
[2019-02-20 10:43] LABS: POC ANION GAP 8 mmol/L (7-16); POC BUN > 99 mg/dL (7-18); POC CA IONIZED 8.1 mg/dL (4.5-5.3); POC CHLORIDE 101 mmol/L (98-107); POC CREATININE 1.3 mg/dL (0.6-1.3); POC GLUCOSE 66 mg/dL (70-99); POC HEMOGLOBIN 5.1 g/dL (12.0-15.0); POC POTASSIUM 7.1 mmol/L (3.5-5.1); POC SODIUM 126 mmol/L (136-145); POC TCO2 25 mmol/L (21-32)
[2019-02-20 10:51] LABS: HCO3 19.5 mmol/L (22.0-26.0); PO2 92.5 mmHg (80.0-100.0)
[2019-02-20 10:52] LABS: PCO2 100.9 mmHg (35.0-45.0); pH 6.904 (7.360-7.450)
[2019-02-20 11:04] LABS: CREATININE 0.8 mg/dL (0.6-1.0)
[2019-02-20 11:06] LABS: CALCIUM 16.1 mg/dL (8.5-10.1); MCV 88.7 fL (80.0-100.0); POTASSIUM 7.5 mmol/L (3.5-5.1); RBC 2.21 mil/uL (4.20-5.00)
[2019-02-20 11:08] LABS: MCHC 29.3 g/dL (28.0-37.0); RDW 22.8 % (10.5-14.5); WBC 13.2 thou/uL (4.0-11.0)
[2019-02-20 11:12] LABS: HEMATOCRIT 19.6 % (37.0-47.0); HEMOGLOBIN 5.7 gm/dL (12.0-15.0)
[2019-02-20] MEDS ORDERED: TYLENOL325 MG PO (11:47)
[2019-02-20] MEDS ORDERED: FLUSH FLUSH (11:49)
[2019-02-20 11:50] LABS: ABSOLUTE NEUTROPHILS 9.2 thou/uL (1.4-8.2); METAMYELOCYTES 6 %; MYELOCYTES 2 %; PROMYELOCYTES 1 %
[2019-02-20 11:55] LABS: LARGE PLATELETS MANY; PLATELET COUNT 78 thou/uL (150-400); PLATELET ESTIMATE DECREASED
[2019-02-20 11:56] LABS: ANISOCYTOSIS 1+; HYPOCHROMASIA 1+; MICROCYTES 1+
[2019-02-20 12:06] VITALS: BP 000/000
--- NOTE | 2019-02-21 08:20 | EKG ---
[place] [address] [facility] [place] [address] ELECTROCARDIOGRAM REPORT Name: BRIGETTE RIVAS [id number] ������������������ Admission: 02/20/19 ������������������ Attend Phys: Discharge: 02/20/19 ������������������ Date of : 56 Report #: [id number] ����������������������������������������������������������������� [id number] THIS REPORT FOR: //name// [facility] ED Test Date: 2019-02-20 Test Time: 10:23:55 Pat Name: BRIGETTE RIVAS Department: Room: Gender: F Lead Quality Technician: : 1960 Requested By: Saira Victor Order Number: [id number] MD: Everton Lal Measurements Intervals [place] Rate: 35 P: [place]: QRS: 118 QRSD: 181 T: -40 QT: 494 QTc: 377 Interpretive Statements Junctional bradycardia RBBB and LPFB Repol abnrm multiple leads Compared to ECG 01/04/2019 21:13:59 sinus tachycardia is no longer present Electronically Signed On 02-21-2019 8:20:07 CDT by Everton Lal [email or web address] ��������������������������������������������� <ELECTRONICALLY SIGNED> ���������������������������������������� By: Everton Lal MD, [facility] ��������������������������������������������� 02/21/19 0820 1023 1023 Everton Lal MD, [facility] /EPI
== END 2019-02-20 12:06 ==
LOC: ER 10:16 → EROBS 11:22 → ER 11:22
PROVIDERS: Emergency Medicine
DX: I95.9 Hypotension, unspecified (principal); E87.2 Acidosis; E87.5 Hyperkalemia; Z99.11 Dependence on respirator [ventilator] status; F41.9 Anxiety disorder, unspecified; I10 Essential (primary) hypertension; K21.9 Gastro-esophageal reflux disease without esophagitis; Z91.041 Radiographic dye allergy status